=== PATIENT | female | born 1945 | race Caucasian/White ===

== ENCOUNTER 2017-02-15 10:41 | Inpatient (IN) | payer MEDICARE, BC ==
--- NOTE | 2017-02-15 11:02 | EDM.PDOC ---
ED HISTORY OF PRESENT ILLNESS - General Chief Complaint: Respiratory Problem Stated Complaint: SENT BY Time Seen by Provider: 02/15/17 10:48 Source of Information: Reports: Patient, Provider History Limitations: Reports: No limitations - History of Present Illness INITIAL COMMENTS - FREE TEXT/NARRATIVE: 72-year-old female currently side and at [facility] in [place] presents to the hospital the request of her provider Dr. Lozano. patient has underlying mental illness primarily that of schizophrenia. She presents with cough and fever and chest x-ray identified a right lower lobar pneumonia. Lab work has been done. Blood cultures have not been carried out. She is hypoxic on room air.arrives on 2 L of oxygen per minute. O2 sats are 94% on 2 L.patient reports her appetite is poor. She denies any fever or chills. Symptom Onset Date: 02/12/17 Timing/Duration: Reports: Day(s):, Gradual onset Severity: moderate Location, General: Reports: chest Quality: Reports: Ache, Sharp (mild pleuritic pain on deep inspiration right side.), Other Improves with: Reports: Rest Worsens with: Reports: Other, Movement Context, General: Denies: Activity (D. proximal and coughing.), Exercise, Lifting, Sick contact, Trauma, Other Associated Symptoms (General): Reports: chest pain, cough, cough w sputum, fever /chills, loss of appetite, malaise, shortness of breath, weakness, other ( anorexia). Denies: no other symptoms, diaphoresis, nausea/vomiting, rash, seizure, syncope Treatments FRONT DESK REPRESENTATIVE: Reports: Acetaminophen - Related Data Allergies/ADRs: Allergies Allergy/AdvReac Type Severity Reaction Status Date / Time prochlorperazine Allergy Cannot Verified 02/15/17 11:02 Remember Home Meds: Home Meds Omeprazole 20 mg PO DAILY 01/28/16 [History] Propranolol [Inderal] 40 mg PO BID 01/28/16 [History] buPROPion [buPROPion XL] 150 mg PO DAILY 01/28/16 [History] Benztropine Mesylate 1 mg PO DAILY 10/14/16 [History] Haloperidol Decanoate [Haloperidol Decanoate 100] 150 mg IM ASDIRECTED 10/14/16 [History] Aspirin 81 mg PO DAILY #30 tab.chew 11/30/16 [Rx] Pravastatin Sodium [Pravastatin (Pravachol)] 40 mg PO DAILY #30 tablet 10/18/16 [Rx] Past Medical History HEENT History: Reports: Impaired vision, Other (see below) Other HEENT History: glasses, missing teeth Gastrointestinal History: Reports: GERD Psychiatric History: Reports: Depression - Past Surgical History HEENT Surgical History: Reports: Cataract surgery GI Surgical History: Reports: Cholecystectomy, EGD Female Surgical History: Reports: Hysterectomy Social & Family History - Family History Family Medical History: Noncontributory - Tobacco Use Smoking Status *Q: Never Smoker - Caffeine Use Caffeine Use: Reports: None - Recreational Drug Use Recreational Drug Use: No - Living Situation & Occupation Living situation: Reports: extended care facility (currently residing at [facility]) Occupation: retired ED ROS GENERAL - Review of Systems Review Of Systems: See Below Constitutional: Reports: fever, chills, malaise, weakness, fatigue, decreased appetite, weight loss HEENT: Reports: No symptoms Respiratory: Reports: Shortness of Breath, Cough Cardiovascular: Reports: Chest pain (pleuritic chest pain mild when she deep please or coughs the right lower lobe.), Blood pressure problem, Dyspnea on exertion (runs a bit lower lately.) Endocrine: Reports: fatigue GI/Abdominal: Reports: Decreased appetite. Denies: Abdominal pain, Diarrhea, Nausea, Vomiting : Reports: frequency, incontinence Musculoskeletal: Reports: shoulder pain (and urge component.), back pain. Denies: neck pain Skin: Reports: no symptoms Neurological: Reports: Confusion Psychiatric: Reports: Confusion (mild problems with short-term memory), Other ( history of schizophrenia.). Denies: Homicidal ideation, Mood lability, Suicidal ideation Hematologic/Lymphatic: Reports: no symptoms Immunologic: Reports: no symptoms ED EXAM, GENERAL - Physical Exam Exam: See Below Exam Limited By: No limitations General Appearance: alert, WD/WN, no apparent distress, other (cool to touch.) Eye Exam: bilateral eye: normal inspection Ears: normal TMs Throat/Mouth: Normal inspection, Normal lips, Normal teeth, Normal oropharynx Head: atraumatic, normocephalic Neck: normal inspection, limited range of motion, tender lateral (bilaterally.) Respiratory/Chest: no respiratory distress, no accessory muscle use, decreased breath sounds (to the lower 20% of lung wyman.), rhonchi (right base of lung.) . No: respiratory distress Cardiovascular: normal peripheral pulses, regular rate, rhythm, no edema, no murmur Peripheral Pulses: 1+: posterior tibial (L), posterior tibial (R), dorsalis pedis (L), dorsalis pedis (R) GI/Abdominal: normal bowel sounds, soft, non tender, no organomegaly, no distention Back Exam: normal inspection, full range of motion. No: CVA tenderness (L), CVA tenderness (R) Extremities: normal inspection, normal range of motion, non-tender, no pedal edema, normal capillary refill Neurological: alert, oriented, CN II-XII intact, normal cognition Psychiatric: normal affect, normal mood Skin Exam: Warm, Dry, Intact, No rash, Pallor (slightly pallid.) EKG INTERPRETATION EKG Date: 02/15/17 Time: 11:20 Rhythm: NSR Rate (beats/min): 75 Mouthcard: normal P-wave: present QRS: other (mildly decreased volume in the precordial leads.) ST-T: normal QT: prolonged (mildly prolonged) Comparison: no change Course - Vital Signs Last Recorded V/S: Last Vital Signs Temp 36.7 C 02/15/17 22:40 Pulse 75 02/16/17 06:38 Resp 18 02/16/17 06:38 BP 122/93 H 02/16/17 06:38 Pulse Ox 93 L 02/16/17 06:38 - Orders/Labs/Meds Orders: Active Orders 24 hr Category Date Time Status Oxygen Therapy [RC] .PRN Care 02/15/17 11:12 Active CULTURE BLOOD [BC] Stat Lab 02/15/17 11:25 Results CULTURE BLOOD [BC] Stat Lab 02/15/17 11:35 Results Blood Culture x2 Reflex Set [OM.PC] Stat Oth 02/15/17 11:04 Ordered Medication Orders Aspirin (Aspirin) 81 mg PO DAILY [facility] Benztropine Mesylate (Cogentin) 1 mg PO DAILY [facility] Bupropion HCl (Wellbutrin Xl) 150 mg PO DAILY [facility] Enoxaparin Sodium (Lovenox) 40 mg SUBCUT DAILY [facility] Potassium Chloride/Sodium Chloride (1/2 Ns With 20 Meq Kcl) 1,000 mls @ 125 mls /hr IV ASDIRECTED [facility] Last Admin: 02/16/17 01:30 Dose: 125 mls/hr Infusion: 02/16/17 01:09 Dose: 125 mls/hr Admin: 02/15/17 17:09 Dose: 125 mls/hr Pantoprazole Sodium (Protonix) 40 mg PO DAILY [facility] Propranolol HCl (Inderal) 40 mg PO BID [facility] Last Admin: 02/15/17 22:37 Dose: 40 mg Simvastatin (Zocor) 20 mg PO DAILY [facility] Labs: Laboratory Tests 02/15/17 02/15/17 02/15/17 Range/Units 11:10 11:10 11:10 WBC 17.31 H (3.98-10.04) K/mm3 RBC 4.21 (3.98-5.22) M/mm3 Hgb 9.7 L (11.2-15.7) gm/L Hct 32.3 L (34.1-44.9) % MCV 76.7 L (79.4-94.8) fl MCH 23.0 L (25.6-32.2) pg MCHC 30.0 L (32.2-35.5) g/dl RDW Std Deviation 56.1 H (36.4-46.3) fL Plt Count 458 H (182-369) K/mm3 MPV 10.2 (9.4-12.3) fl Neutrophils % (Manual) 72 H (40-60) % Band Neutrophils % 11 H (0-10) % Lymphocytes % (Manual) 14 L (20-40) % Atypical Lymphs % 0 % Monocytes % (Manual) 3 (2-10) % Eosinophils % (Manual) 0 L (0.7-5.8) % Basophils % (Manual) 0 L (0.1-1.2) Platelet Estimate See note Polychromasia 1+ slight Hypochromasia 1+ slight Poikilocytosis 1+ slight Anisocytosis 1+ slight Ovalocytes Few RBC Morph Comment Not Reportable Sodium 140 (136-145) mEq/L Potassium 3.6 (3.5-5.1) mEq/L Chloride 106 (98-107) mEq/L Carbon Dioxide 19 L (21-32) mEq/L Anion Gap 18.6 H (5-15) BUN 22 H (7-18) mg/dL Creatinine 1.1 H (0.55-1.02) mg/dL Est Cr Clr Drug Dosing 48.01 mL/min Estimated GFR (MDRD) 49 (>60) mL/min BUN/Creatinine Ratio 20.0 H (14-18) Glucose 107 (80-115) mg/dL Lactic Acid (0.4-2.0) mmol/L Calcium 8.8 (8.5-10.1) mg/dL Magnesium (1.8-2.4) mg/dl Total Bilirubin 0.8 (0.2-1.0) mg/dL AST 20 (15-37) U/L ALT 19 (14-59) U/L Alkaline Phosphatase 127 H (46-116) U/L Troponin I < 0.017 (0.00-0.056) ng/mL C-Reactive Protein 13.1 H* (<1.0) mg/dL B-Natriuretic Peptide 70 (0-100) pg/mL Total Protein 7.6 (6.4-8.2) g/dl Albumin 2.9 L (3.4-5.0) g/dl Globulin 4.7 gm/dL Albumin/Globulin Ratio 0.6 L (1-2) 02/15/17 02/15/17 Range/Units 11:10 11:35 WBC (3.98-10.04) K/mm3 RBC (3.98-5.22) M/mm3 Hgb (11.2-15.7) gm/L Hct (34.1-44.9) % MCV (79.4-94.8) fl MCH (25.6-32.2) pg MCHC (32.2-35.5) g/dl RDW Std Deviation (36.4-46.3) fL Plt Count (182-369) K/mm3 MPV (9.4-12.3) fl Neutrophils % (Manual) (40-60) % Band Neutrophils % (0-10) % Lymphocytes % (Manual) (20-40) % Atypical Lymphs % % Monocytes % (Manual) (2-10) % Eosinophils % (Manual) (0.7-5.8) % Basophils % (Manual) (0.1-1.2) Platelet Estimate Polychromasia Hypochromasia Poikilocytosis Anisocytosis Ovalocytes RBC Morph Comment Sodium (136-145) mEq/L Potassium (3.5-5.1) mEq/L Chloride (98-107) mEq/L Carbon Dioxide (21-32) mEq/L Anion Gap (5-15) BUN (7-18) mg/dL Creatinine (0.55-1.02) mg/dL Est Cr Clr Drug Dosing mL/min Estimated GFR (MDRD) (>60) mL/min BUN/Creatinine Ratio (14-18) Glucose (80-115) mg/dL Lactic Acid 1.3 (0.4-2.0) mmol/L Calcium (8.5-10.1) mg/dL Magnesium 2.2 (1.8-2.4) mg/dl Total Bilirubin (0.2-1.0) mg/dL AST (15-37) U/L ALT (14-59) U/L Alkaline Phosphatase (46-116) U/L Troponin I (0.00-0.056) ng/mL C-Reactive Protein (<1.0) mg/dL B-Natriuretic Peptide (0-100) pg/mL Total Protein (6.4-8.2) g/dl Albumin (3.4-5.0) g/dl Globulin gm/dL Albumin/Globulin Ratio (1-2) Meds: Medications Generic Name Dose Route Start Last Admin Trade Name Freq PRN Reason Stop Dose Admin Aspirin 81 mg 02/16/17 09:00 Aspirin PO DAILY [facility] Benztropine Mesylate 1 mg 02/16/17 09:00 Cogentin PO DAILY [facility] Bupropion HCl 150 mg 02/16/17 09:00 Wellbutrin Xl PO DAILY [facility] Enoxaparin Sodium 40 mg 02/16/17 09:00 Lovenox SUBCUT DAILY [facility] Potassium Chloride/Sodium Chloride 1,000 mls @ 125 mls/hr 02/15/17 16:00 01:30 1/2 Ns With 20 Meq Kcl IV 125 mls/hr ASDIRECTED [facility] Administration Pantoprazole Sodium 40 mg 02/16/17 09:00 Protonix PO DAILY [facility] Propranolol HCl 40 mg 02/15/17 21:00 02/15/17 22:37 Inderal PO 40 mg BID [facility] Administration Simvastatin 20 mg 02/16/17 09:00 Zocor PO DAILY [facility] Discontinued Medications Generic Name Dose Route Start Last Admin Trade Name Freq PRN Reason Stop Dose Admin Levofloxacin/Dextrose 750 mg/ 150 mls @ 100 mls/hr 02/15/17 11:13 02/15/17 14 :00 Premix IV 02/15/17 12:42 100 mls/hr ONETIME ONE Administration Sodium Chloride 1,000 mls @ 250 mls/hr 02/15/17 11:15 Normal Saline IV ASDIRECTED [facility] Dextrose/Sodium Chloride 1,000 mls @ 250 mls/hr 02/15/17 13:00 02/15/17 14:00 Dextrose 5%-Normal Saline IV 250 mls/hr ASDIRECTED [facility] Administration Non-Formulary Medication 150 mg 02/15/17 16:00 Haloperidol Decanoate IM ASDIRECTED [facility] - Radiology Interpretation Free Text/Narrative:: 72-year-old female who has underlying mental illness and chronic schizophrenia presented to the ED at the request of her primary care practitioner Dr. Norbert pearson. Apparently she presented with fever chills and productive cough and a chest x-ray suggested a right lower lobar pneumonia. She was thus sent sent over because of hypoxia and perceived need for admission. Currently she is on 2 L of oxygen per minute and sats are only 91-92%. Will be bumped to 3 L.labs will be repeated since they were supposed to be sent over but have not arrived. Blood cultures x2 need to be done at any rate. She'll be started on IV Levaquin 750 mg IV soon as blood cultures x2 been collected. - Re-Assessments/Exams Free Text/Narrative Re-Assessment/Exam: 02/15/17 11:43x-ray department techs were able to get the x-ray films that were done at [facility] this morning sent over it does confirm an infiltrate in the right lower lobe of the lung suggestive of a pneumonia. It also could be some fluid in this area as well. blunted left costophrenic angle with small pleural effusion is evident as well.Chest x-ray that I had ordered was canceled. 02/15/17 12:41labs are back and show an elevated white count at 17.31 with a left shift of 72% neutrophils and 11% band cells. Hemoglobin is low at 9.7 with a hematocrit of 32.3.platelet count is elevated at 458,000. IE mild essential thrombocytosis. The MCV is low at 76.7 suggesting iron deficiency anemia.chemistry shows a sodium of 140 potassium 3.6 bicarbonate is 19 and she is not a CO2 retainer. Anion gap is elevated 18.6 CRP is elevated at 13.1. Creatinine is 1.1 EGFR is 49 albumin fraction slightly low at 2.1. Lactic acid was normal.the BMP is not yet back. The chest x-ray suggested there is extra fluid within the lungs. Will change IV to D5 normal saline at 250 mils per hour until the BMP returns. This is because her anion gap is elevated at 18.6. 02/15/17 13:[address] Mayo bathroom tiling professional hospitalist and she is accepted care of betty in regards to her pneumonia. She'll be admitted to the [facility] surgery floor on telemetry. Departure - Departure Time of Disposition: 13:23 Disposition: Admitted As Inpatient 68 Condition: fair, serious Clinical Impression: Hypoxia Pneumonia Qualifiers: Pneumonia type: due to unspecified organism Laterality: right Lung location: lower lobe of lung Qualified Code(s): J18.1 - Lobar pneumonia, unspecified organism Anemia Qualifiers: Anemia type: iron deficiency - My Orders Last 24 Hours: My Active Orders 02/15/17 11:04 Blood Culture x2 Reflex Set [OM.PC] Stat 02/15/17 11:12 Oxygen Therapy [RC] .PRN 02/15/17 11:25 CULTURE BLOOD [BC] Stat 02/15/17 11:35 CULTURE BLOOD [BC] Stat - Assessment/Plan Last 24 Hours: My Active Orders 02/15/17 11:04 Blood Culture x2 Reflex Set [OM.PC] Stat 02/15/17 11:12 Oxygen Therapy [RC] .PRN 02/15/17 11:25 CULTURE BLOOD [BC] Stat 02/15/17 11:35 CULTURE BLOOD [BC] Stat
[2017-02-15] MEDS ORDERED: Levofloxacin/Dextrose 5%-Water 750 MG in Premix Bag 1 BAG IV ONE (11:13)
[2017-02-15] MEDS ORDERED: Sodium Chloride 0.9% 1,000 ML IV SCH (11:15)
[2017-02-15] MEDS ORDERED: Dextrose 5%-0.9% NaCl 1,000 ML IV SCH (13:00)
--- NOTE | 2017-02-15 14:10 | PCM.SN ---
- Free Text/Narrative Note: in room at 1339 for IV start x3 attempts #[id number]. right thumb good flush out room at 1401
--- NOTE | 2017-02-15 15:36 | PCM.HP ---
H&P History of Present Illness - General Date of Service: 02/15/17 Admit Problem/Dx: Admission Diagnosis/Problem Admission Diagnosis/Problem Pneumonia Source of Information: Provider History Limitations: Reports: No limitations - History of Present Illness Initial Comments - Free Text/Narative: 72 year old female with SOB, pleuritic chest pain who on CXR has RLL infiltrate , was seen and evaluated by her PCP and sent to the ED where she received IV Levoquin. Oxygen was also provide, O2 saturation improved to 94% on 2 l/m via NC. WBC 17.3/Bands 11/CRP 13.1; Bun 22/Cr 1.1/GFR 49, CKD III. The patient will be admitted to [facility]. Onset of Symptoms: Reports: unknown/unsure Duration of Symptoms: Reports: Day(s):, Getting worse Location: Reports: chest Severity: moderate Improves with: Reports: Medication Worsens with: Reports: None Context: Reports: sick contact (unknown) Associated Symptoms: Reports: chest pain, fever/chills, malaise, shortness of breath - Related Data Allergies/Adverse Reactions: Allergies Allergy/AdvReac Type Severity Reaction Status Date / Time prochlorperazine Allergy Cannot Verified 02/15/17 11:02 Remember Home Medications: Home Meds Omeprazole 20 mg PO DAILY 01/28/16 [History] Propranolol [Inderal] 40 mg PO BID 01/28/16 [History] buPROPion [buPROPion XL] 150 mg PO DAILY 01/28/16 [History] Benztropine Mesylate 1 mg PO DAILY 10/14/16 [History] Haloperidol Decanoate [Haloperidol Decanoate 100] 150 mg IM ASDIRECTED 10/14/16 [History] Aspirin 81 mg PO DAILY #30 tab.chew 10/18/16 [Rx] Pravastatin Sodium [Pravastatin (Pravachol)] 40 mg PO DAILY #30 tablet 10/18/16 [Rx] Past Medical History HEENT History: Reports: Impaired vision, Other (see below) Other HEENT History: glasses, missing teeth Gastrointestinal History: Reports: GERD Psychiatric History: Reports: Depression - Past Surgical History HEENT Surgical History: Reports: Cataract surgery GI Surgical History: Reports: Cholecystectomy, EGD Female Surgical History: Reports: Hysterectomy Social & Family History - Family History Family Medical History: Noncontributory - Tobacco Use Smoking Status *Q: Never Smoker Second Hand Smoke Exposure: No - Caffeine Use Caffeine Use: Reports: None - Recreational Drug Use Recreational Drug Use: No - Living Situation & Occupation Living situation: Reports: extended care facility (currently residing at [facility]) Occupation: retired H&P Review of Systems - Review of Systems: Review Of Systems: See Below General: Reports: fever, chills, malaise, weakness, decreased appetite HEENT: Reports: sore throat Pulmonary: Reports: Shortness of Breath, Pleuritic Chest Pain, Cough, Sputum Cardiovascular: Reports: dyspnea on exertion, lightheadedness Gastrointestinal: Reports: Anorexia, Decreased appetite. Denies: Mucous in stool Genitourinary: Reports: no symptoms Musculoskeletal: Reports: shoulder pain, back pain Skin: Reports: no symptoms Psychiatric: Reports: confusion Neurological: Reports: Confusion Hematologic/Lymphatic: Reports: no symptoms Immunologic: Reports: no symptoms Exam - Exam Exam: See Below - Vital Signs Vital Signs: Last Vital Signs Temp 36.3 C 02/15/17 11:00 Pulse 77 02/15/17 11:00 Resp 14 02/15/17 11:00 BP 108/64 02/15/17 11:00 Pulse Ox 88 L 02/15/17 14:50 Weight: 81.647 kg - Exam Quality Assessment: supplemental oxygen, DVT prophylaxis General: alert, oriented, cooperative HEENT: EACs clear, EOMI, Nares patent, Normal nasal septum, Pupils equal, Pupils reactive Neck: trachea midline Lungs: Normal respiratory effort, Decreased breath sounds, Rhonchi Cardiovascular: regular rate, tachycardia Abdomen: normal bowel sounds, soft (Female) Exam: Deferred Rectal (Female) Exam: Deferred Back Exam: normal inspection Extremities: normal pulses Skin: warm Neurological: cranial nerves intact Neuro Extensive - Mental Status: alert, other (oriented to self) Neuro Extensive - Motor, Sensory, Reflexes: CN II-XII intact Psychiatric: alert - Patient Data Result Diagrams: 02/15/17 11:10 02/16/17 06:34 *Q Meaningful Use (ADM) - VTE *Q VTE Criteria *Q: - Stroke *Q Stroke Criteria *Q: - AMI *Q AMI Criteria *Q: - Problem List (1) Anemia SNOMED Code(s): 832498595 ICD Code: D64.9 - ANEMIA, UNSPECIFIED Status: Acute Current Visit: Yes Qualifiers: Anemia type: iron deficiency (2) Hypoxia SNOMED Code(s): 875694682, 469448719 ICD Code: R09.02 - HYPOXEMIA Status: Acute Current Visit: Yes (3) Pneumonia SNOMED Code(s): 430453895 ICD Code: J18.9 - PNEUMONIA, UNSPECIFIED ORGANISM Status: Acute Current Visit: Yes Qualifiers: Pneumonia type: due to unspecified organism Laterality: right Lung location: lower lobe of lung Qualified Code(s): J18.1 - Lobar pneumonia, unspecified organism (4) Dyslipidemia (high LDL; low HDL) SNOMED Code(s): 591923930 ICD Code: E78.4 - OTHER HYPERLIPIDEMIA Status: Acute Current Visit: No (5) Mild atherosclerosis of carotid artery SNOMED Code(s): 385569496 ICD Code: I65.29 - OCCLUSION AND STENOSIS OF UNSPECIFIED CAROTID ARTERY Status: Acute Current Visit: No Qualifiers: Laterality: bilateral Qualified Code(s): I65.23 - Occlusion and stenosis of bilateral carotid arteries Problem List Initiated/Reviewed/Updated: Yes Orders Last 24hrs: Active Orders 24 hr Category Date Time Status Dextrose 5%-0.9% NaCl [Dextrose 5%-Normal Saline] 1,000 Med 02/15/17 13:00 Active ml IV ASDIRECTED Medication Orders Dextrose/Sodium Chloride (Dextrose 5%-Normal Saline) 1,000 mls @ 250 mls/hr IV ASDIRECTED [facility] Last Admin: 02/15/17 14:00 Dose: 250 mls/hr Assessment/Plan Comment:: Impression: [place] resident with pleuritic chest pain, CXR right lower lobe infiltrate associated with hypoxia was seen by PCP. Nonsmoker Dehydration Psychiatric history, schizophrenia Chronic Schizophrenia GERD Hyperlipdemia Plan: Levoquin Zosyn Nebs O2, keep sat>92% IV hydration Home meds DVT/GI prophylaxis LOS<96 hours expected
[2017-02-15] MEDS ORDERED: HALOPERIDOL DECANOATE 150 MG IM SCH (16:00)
[2017-02-15] MEDS: Sodium Chloride 0.45% with KCl 1,000 ML IV SCH (17:09)
[2017-02-15] MEDS: Propranolol 40 MG Tab PO SCH (22:37)
[2017-02-16] MEDS: Sodium Chloride 0.45% with KCl 1,000 ML IV SCH ×3 (01:30→18:28)
[2017-02-16] MEDS: Enoxaparin 40 MG/0.4 ML Syringe SUBCUT SCH (09:52)
[2017-02-16] MEDS: Simvastatin 20 MG Tab PO SCH (09:53)
[2017-02-16] MEDS: buPROPion 150 MG Tab.ER PO SCH (09:53)
[2017-02-16] MEDS: Propranolol 40 MG Tab PO SCH ×2 (09:53→21:57)
[2017-02-16] MEDS: Pantoprazole 40 MG Tab.CR PO SCH (09:53)
[2017-02-16] MEDS: Benztropine 1 MG Tab PO SCH (09:53)
[2017-02-16] MEDS: Aspirin 81 MG Tab.Chew PO SCH (09:53)
[2017-02-16] MEDS ORDERED: Piperacillin/Tazobactam 4.5 GM in Sodium Chloride 0.9% 100 ML IV ONE (10:00)
[2017-02-16] MEDS: Levofloxacin/Dextrose 5%-Water 750 MG in Premix Bag 1 BAG IV SCH (11:34)
[2017-02-16] MEDS: Albuterol/Ipratropium 3.0-0.5 MG/3 ML Neb Soln NEB SCH ×3 (11:53→22:15)
--- NOTE | 2017-02-16 11:57 | PCM.PN ---
- General Info Date of Service: 02/16/17 Functional Status: Reports: tolerating diet, urinating - Review of Systems General: Reports: Weakness, Fatigue HEENT: Reports: no symptoms Pulmonary: Reports: shortness of breath Cardiovascular: Reports: No Symptoms Gastrointestinal: Reports: No symptoms Genitourinary: Reports: no symptoms Musculoskeletal: Reports: no symptoms Neurological: Reports: Confusion Psychiatric: Reports: other (restless) - Patient Data Vitals - most recent: Last Vital Signs Temp 36.7 C 02/15/17 22:40 Pulse 75 02/16/17 06:38 Resp 18 02/16/17 06:38 BP 122/93 H 02/16/17 06:38 Pulse Ox 91 L 02/16/17 11:53 Weight - most recent: 77.836 kg I&O - last 24 hours: Intake & Output 02/15/17 02/16/17 02/16/17 22:59 06:59 14:59 Intake Total 120 1880 120 Balance 120 1880 120 Lab Results last 24 hrs: Laboratory Results - last 24 hr 02/15/17 02/16/17 Range/Units 19:50 06:34 Sodium 137 (136-145) mEq/L Potassium 3.5 (3.5-5.1) mEq/L Chloride 106 (98-107) mEq/L Carbon Dioxide 19 L (21-32) mEq/L Anion Gap 15.5 H (5-15) BUN 12 (7-18) mg/dL Creatinine 0.9 (0.55-1.02) mg/dL Est Cr Clr Drug Dosing 58.67 mL/min Estimated GFR (MDRD) > 60 (>60) mL/min BUN/Creatinine Ratio 13.3 L (14-18) Glucose 105 (80-115) mg/dL Calcium 8.0 L (8.5-10.1) mg/dL Urine Color Yellow (Yellow) Urine Appearance Cloudy H (Clear) Urine pH 6.0 (5.0-8.0) Ur Specific [place] > or = 1.030 (1.005-1.030) Urine Protein 2+ H (Negative) Urine Glucose (UA) Negative (Negative) Urine Ketones Trace H (Negative) Urine Occult Blood 1+ H (Negative) Urine Nitrite Positive H (Negative) Urine Bilirubin 1+ H (Negative) Urine Urobilinogen 2.0 H (0.2-1.0) Ur Leukocyte Esterase Negative (Negative) Urine RBC 0-5 (0-5) /hpf Urine WBC 20-30 H (0-5) /hpf Ur Squamous Epith Cells 5-10 H (0-5) /hpf Urine Bacteria Many H (FEW) /hpf Urine Mucus Not seen (FEW) /hpf Mycoplasma pneumon IgM Negative (NEGATIVE) [facility]rick Results last 24 hrs: Microbiology 02/15/17 17:00 Influenza Type A Antigen Screen - Final Nasal, Unspecified NEGATIVE INFLUENZA A VIRUS AG Influenza Type B Antigen Screen - Final NEGATIVE INFLUENZA B VIRUS AG Med Orders - Current: Current Medications Albuterol/Ipratropium (Duoneb 3.0-0.5 Mg/3 Ml) 3 ml NEB Q6HRRT [facility] Last Admin: 02/16/17 11:53 Dose: 3 ml Aspirin (Aspirin) 81 mg PO DAILY [facility] Last Admin: 02/16/17 09:53 Dose: 81 mg Benztropine Mesylate (Cogentin) 1 mg PO DAILY [facility] Last Admin: 02/16/17 09:53 Dose: 1 mg Bupropion HCl (Wellbutrin Xl) 150 mg PO DAILY [facility] Last Admin: 02/16/17 09:53 Dose: 150 mg Enoxaparin Sodium (Lovenox) 40 mg SUBCUT DAILY [facility] Last Admin: 02/16/17 09:52 Dose: 40 mg Potassium Chloride/Sodium Chloride (1/2 Ns With 20 Meq Kcl) 1,000 mls @ 125 mls /hr IV ASDIRECTED [facility] Last Admin: 02/16/17 09:53 Dose: 125 mls/hr Levofloxacin/Dextrose 750 mg/ (Premix) 150 mls @ 100 mls/hr IV Q24H [facility] Last Admin: 02/16/17 11:34 Dose: 100 mls/hr Piperacillin Sod/Tazobactam (Sod 4.5 gm/ Sodium Chloride) 100 mls @ 25 mls/hr IV Q8H [facility] Pantoprazole Sodium (Protonix) 40 mg PO DAILY [facility] Last Admin: 02/16/17 09:53 Dose: 40 mg Propranolol HCl (Inderal) 40 mg PO BID [facility] Last Admin: 02/16/17 09:53 Dose: 40 mg Simvastatin (Zocor) 20 mg PO DAILY [facility] Last Admin: 02/16/17 09:53 Dose: 20 mg Discontinued Medications Levofloxacin/Dextrose 750 mg/ (Premix) 150 mls @ 100 mls/hr IV ONETIME ONE Stop: 02/15/17 12:42 Last Admin: 02/15/17 14:00 Dose: 100 mls/hr Sodium Chloride (Normal Saline) 1,000 mls @ 250 mls/hr IV ASDIRECTED [facility] Dextrose/Sodium Chloride (Dextrose 5%-Normal Saline) 1,000 mls @ 250 mls/hr IV ASDIRECTED [facility] Last Admin: 02/15/17 14:00 Dose: 250 mls/hr Piperacillin Sod/Tazobactam (Sod 4.5 gm/ Sodium Chloride) 100 mls @ 200 mls/hr IV ONETIME ONE Stop: 02/16/17 10:29 Last Admin: 02/16/17 10:23 Dose: 200 mls/hr Non-Formulary Medication (Haloperidol Decanoate) 150 mg IM ASDIRECTED [facility] - Exam Quality Assessment: supplemental oxygen, DVT prophylaxis General: alert, oriented, cooperative, no acute distress HEENT: Pupils equal, Pupils reactive, EOMI Neck: supple, trachea midline, no JVD Lungs: Normal respiratory effort, Decreased breath sounds Cardiovascular: Regular Rate, Regular Rhythm Abdomen: bowel sounds present, soft, no tenderness, no distension (Female) Exam: Deferred Back Exam: normal inspection Extremities: normal pulses Skin: warm Neurological: no new focal deficit, normal speech Psy/Mental Status: alert - Problem List & Annotations (1) Anemia SNOMED Code(s): 168473813 Code(s): D64.9 - ANEMIA, UNSPECIFIED Status: Acute Current Visit: Yes Qualifiers: Anemia type: iron deficiency (2) Hypoxia SNOMED Code(s): 493244845, 714228388 Code(s): R09.02 - HYPOXEMIA Status: Acute Current Visit: Yes (3) Pneumonia SNOMED Code(s): 305208105 Code(s): J18.9 - PNEUMONIA, UNSPECIFIED ORGANISM Status: Acute Current Visit: Yes Qualifiers: Pneumonia type: due to unspecified organism Laterality: right Lung location: lower lobe of lung Qualified Code(s): J18.1 - Lobar pneumonia, unspecified organism (4) Dyslipidemia (high LDL; low HDL) SNOMED Code(s): 789039827 Code(s): E78.4 - OTHER HYPERLIPIDEMIA Status: Acute Current Visit: No (5) Mild atherosclerosis of carotid artery SNOMED Code(s): 675199476 Code(s): I65.29 - OCCLUSION AND STENOSIS OF UNSPECIFIED CAROTID ARTERY Status: Acute Current Visit: No Qualifiers: Laterality: bilateral Qualified Code(s): I65.23 - Occlusion and stenosis of bilateral carotid arteries - Problem List Review Problem List Initiated/Reviewed/Updated: Yes - My Orders Last 24 Hours: My Active Orders 02/15/17 15:43 Activity as Tolerated [RC] DAILY Vital Signs [RC] 03,09,15,21 02/15/17 15:45 Isolation [COMM] Routine 02/15/17 15:55 Antiembolic Devices [RC] DAILY ANNIA Hose [Antiembolic Hose] [OM.PC] Routine 02/15/17 16:00 Sodium Chloride 0.45% with KCl [1/2 NS with 20 mEq KCl] 1,000 ml IV ASDIRECTED 02/15/17 17:34 Code Status [Resuscitation Status] Routine 02/15/17 19:50 CULTURE URINE [RM] Routine STREP PNEUMONIAE ANTIGEN [MREF] Routine 02/15/17 21:00 Propranolol [Inderal] 40 mg PO BID 02/15/17 Dinner Clear Liquid Diet [DIET] 02/16/17 06:34 MAGNESIUM [CHEM] DAILY 02/16/17 09:00 Aspirin 81 mg PO DAILY Benztropine [Cogentin] 1 mg PO DAILY Enoxaparin [Lovenox] 40 mg SUBCUT DAILY Pantoprazole [ProTONIX] 40 mg PO DAILY Simvastatin [Zocor] 20 mg PO DAILY buPROPion [Wellbutrin XL] 150 mg PO DAILY 02/16/17 10:01 RT Aerosol Therapy [RC] ASDIRECTED 02/16/17 10:30 Levofloxacin/Dextrose 5%-Water [Levaquin in D5W 750 MG/150 ML] 750 mg Premix Bag 1 bag IV Q24H 02/16/17 11:50 OT Evaluation and Treatment [CONS] Routine PT Evaluation and Treatment [CONS] Routine 02/16/17 12:00 Albuterol/Ipratropium [DuoNeb 3.0-0.5 MG/3 ML] 3 ml NEB Q6HRRT 02/16/17 18:00 Piperacillin/Tazobactam [Zosyn] 4.5 gm Sodium Chloride 0.9% [Normal Saline] 100 ml IV Q8H 02/17/17 05:00 BMP [BASIC METABOLIC PANEL,BMP] [CHEM] DAILY CBC WITH AUTO DIFF [HEME] DAILY CRP [C-REACTIVE PROTEIN] [CHEM] DAILY MAGNESIUM [CHEM] Routine 02/18/17 05:00 BMP [BASIC METABOLIC PANEL,BMP] [CHEM] DAILY CBC WITH AUTO DIFF [HEME] DAILY CRP [C-REACTIVE PROTEIN] [CHEM] DAILY 02/19/17 05:00 CBC WITH AUTO DIFF [HEME] DAILY CRP [C-REACTIVE PROTEIN] [CHEM] DAILY 02/19/17 07:00 CBC W/O DIFF,HEMOGRAM [HEME] MOTH@0700 02/22/17 07:00 CBC W/O DIFF,HEMOGRAM [HEME] MOTH@0700 02/26/17 07:00 CBC W/O DIFF,HEMOGRAM [HEME] MOTH@0700 03/01/17 07:00 CBC W/O DIFF,HEMOGRAM [HEME] MOTH@0700 03/05/17 07:00 CBC W/O DIFF,HEMOGRAM [HEME] MOTH@0700 03/08/17 07:00 CBC W/O DIFF,HEMOGRAM [HEME] MOTH@0700 - Plan Plan:: Impression: [place] resident with pleuritic chest pain, CXR right lower lobe infiltrate associated with hypoxia was seen by PCP. Nonsmoker Dehydration Psychiatric history, schizophrenia Chronic GERD Hyperlipdemia Plan: Levoquin Zosyn Nebs O2, keep sat>92% IV hydration Home meds DVT/GI prophylaxis
[2017-02-16] MEDS ORDERED: Haloperidol Lactate 5 MG/ML SDV IVPUSH ONE (13:03)
[2017-02-16] MEDS: Piperacillin/Tazobactam 4.5 GM in Sodium Chloride 0.9% 100 ML IV SCH (17:38)
[2017-02-16] MEDS ORDERED: Magnesium Sulfate/Water 2 GM in Premix Bag 1 BAG IV ONE (20:00)
[2017-02-17] MEDS: Piperacillin/Tazobactam 4.5 GM in Sodium Chloride 0.9% 100 ML IV SCH ×3 (02:29→17:02)
[2017-02-17] MEDS: Sodium Chloride 0.45% with KCl 1,000 ML IV SCH (02:29)
[2017-02-17] MEDS: Albuterol/Ipratropium 3.0-0.5 MG/3 ML Neb Soln NEB SCH ×4 (06:00→21:55)
[2017-02-17] MEDS: Pantoprazole 40 MG Tab.CR PO SCH (09:03)
[2017-02-17] MEDS: Aspirin 81 MG Tab.Chew PO SCH (09:04)
[2017-02-17] MEDS: Propranolol 40 MG Tab PO SCH ×2 (09:04→22:08)
[2017-02-17] MEDS: buPROPion 150 MG Tab.ER PO SCH (09:04)
[2017-02-17] MEDS: Simvastatin 20 MG Tab PO SCH (09:05)
[2017-02-17] MEDS: Benztropine 1 MG Tab PO SCH (09:05)
[2017-02-17] MEDS: Enoxaparin 40 MG/0.4 ML Syringe SUBCUT SCH (09:09)
[2017-02-17] MEDS: Levofloxacin/Dextrose 5%-Water 750 MG in Premix Bag 1 BAG IV SCH (09:30)
--- NOTE | 2017-02-17 11:17 | PCM.PN ---
- General Info Date of Service: 02/17/17 Functional Status: Reports: tolerating diet, urinating - Review of Systems General: Reports: Weakness HEENT: Reports: no symptoms Pulmonary: Reports: shortness of breath Cardiovascular: Reports: No Symptoms Gastrointestinal: Reports: No symptoms Genitourinary: Reports: no symptoms Musculoskeletal: Reports: no symptoms Skin: Reports: no symptoms Neurological: Reports: No Symptoms Psychiatric: Reports: no symptoms - Patient Data Vitals - most recent: Last Vital Signs Temp 37.2 C 02/17/17 02:36 Pulse 85 02/17/17 02:36 Resp 16 02/17/17 02:36 BP 111/48 L 02/17/17 02:36 Pulse Ox 92 L 02/17/17 06:02 Weight - most recent: 77.927 kg I&O - last 24 hours: Intake & Output 02/16/17 02/17/17 02/17/17 22:59 06:59 14:59 Intake Total 3909 1765 120 Output Total 400 1800 Balance 3509 -35 120 Lab Results last 24 hrs: Laboratory Results - last 24 hr 02/16/17 02/17/17 02/17/17 Range/Units 06:34 07:55 07:55 WBC 12.15 H (3.98-10.04) K/mm3 RBC 3.70 L (3.98-5.22) M/mm3 Hgb 8.6 L (11.2-15.7) gm/L Hct 28.9 L (34.1-44.9) % MCV 78.1 L (79.4-94.8) fl MCH 23.2 L (25.6-32.2) pg MCHC 29.8 L (32.2-35.5) g/dl RDW Std Deviation 56.8 H (36.4-46.3) fL Plt Count 370 H (182-369) K/mm3 MPV 10.1 (9.4-12.3) fl Neut % (Auto) 76.3 H (34.0-71.1) % Lymph % (Auto) 9.5 L (19.3-51.7) % [place] % (Auto) 9.0 (4.7-12.5) % Eos % (Auto) 1.5 (0.7-5.8) Baso % (Auto) 0.2 (0.1-1.2) % Neut # (Auto) 9.29 H (1.56-6.13) K/mm3 Lymph # (Auto) 1.15 L (1.18-3.74) K/mm3 [place] # (Auto) 1.09 H (0.24-0.36) K/mm3 Eos # (Auto) 0.18 (0.04-0.36) K/mm3 Baso # (Auto) 0.02 (0.01-0.08) K/mm3 Manual Slide Review Abnormal smear Sodium 140 (136-145) mEq/L Potassium 3.8 (3.5-5.1) mEq/L Chloride 107 (98-107) mEq/L Carbon Dioxide 20 L (21-32) mEq/L Anion Gap 16.8 H (5-15) BUN 6 L (7-18) mg/dL Creatinine 0.9 (0.55-1.02) mg/dL Est Cr Clr Drug Dosing 58.67 mL/min Estimated GFR (MDRD) > 60 (>60) mL/min BUN/Creatinine Ratio 6.7 L (14-18) Glucose 94 (80-115) mg/dL Calcium 7.9 L (8.5-10.1) mg/dL Magnesium 1.7 L 2.4 (1.8-2.4) mg/dl C-Reactive Protein 8.9 H* (<1.0) mg/dL [facility] Results last 24 hrs: Microbiology 02/15/17 19:50 Urine Culture - Final Urine, Clean Catch Escherichia Coli 02/15/17 19:50 Streptococcus pneumoniae Antigen (M - Final Urine Med Orders - Current: Current Medications Albuterol/Ipratropium (Duoneb 3.0-0.5 Mg/3 Ml) 3 ml NEB Q6HRRT [facility] Last Admin: 02/17/17 11:14 Dose: 3 ml Aspirin (Aspirin) 81 mg PO DAILY [facility] Last Admin: 02/17/17 09:04 Dose: 81 mg Benztropine Mesylate (Cogentin) 1 mg PO DAILY [facility] Last Admin: 02/17/17 09:05 Dose: 1 mg Bupropion HCl (Wellbutrin Xl) 150 mg PO DAILY [facility] Last Admin: 02/17/17 09:04 Dose: 150 mg Enoxaparin Sodium (Lovenox) 40 mg SUBCUT DAILY [facility] Last Admin: 02/17/17 09:09 Dose: 40 mg Potassium Chloride/Sodium Chloride (1/2 Ns With 20 Meq Kcl) 1,000 mls @ 125 mls /hr IV ASDIRECTED [facility] Last Admin: 02/17/17 02:29 Dose: 125 mls/hr Levofloxacin/Dextrose 750 mg/ (Premix) 150 mls @ 100 mls/hr IV Q24H [facility] Last Admin: 02/17/17 09:30 Dose: 100 mls/hr Piperacillin Sod/Tazobactam (Sod 4.5 gm/ Sodium Chloride) 100 mls @ 25 mls/hr IV Q8H [facility] Last Admin: 02/17/17 09:30 Dose: 25 mls/hr Pantoprazole Sodium (Protonix) 40 mg PO DAILY [facility] Last Admin: 02/17/17 09:03 Dose: 40 mg Propranolol HCl (Inderal) 40 mg PO BID [facility] Last Admin: 02/17/17 09:04 Dose: 40 mg Simvastatin (Zocor) 20 mg PO DAILY [facility] Last Admin: 02/17/17 09:05 Dose: 20 mg Discontinued Medications Haloperidol Lactate (Haldol) 2 mg IVPUSH ONETIME ONE Stop: 02/16/17 13:04 Last Admin: 02/16/17 13:41 Dose: 2 mg Levofloxacin/Dextrose 750 mg/ (Premix) 150 mls @ 100 mls/hr IV ONETIME ONE Stop: 02/15/17 12:42 Last Admin: 02/15/17 14:00 Dose: 100 mls/hr Sodium Chloride (Normal Saline) 1,000 mls @ 250 mls/hr IV ASDIRECTED [facility] Dextrose/Sodium Chloride (Dextrose 5%-Normal Saline) 1,000 mls @ 250 mls/hr IV ASDIRECTED [facility] Last Admin: 02/15/17 14:00 Dose: 250 mls/hr Piperacillin Sod/Tazobactam (Sod 4.5 gm/ Sodium Chloride) 100 mls @ 200 mls/hr IV ONETIME ONE Stop: 02/16/17 10:29 Last Admin: 02/16/17 10:23 Dose: 200 mls/hr Magnesium Sulfate 2 gm/ Premix 50 mls @ 25 mls/hr IV ONETIME ONE Stop: 02/16/17 21:59 Last Admin: 02/16/17 21:57 Dose: 25 mls/hr Non-Formulary Medication (Haloperidol Decanoate) 150 mg IM ASDIRECTED [facility] - Exam Quality Assessment: DVT prophylaxis General: alert, oriented, cooperative, no acute distress HEENT: Pupils equal, Pupils reactive, EOMI Neck: supple, trachea midline, no JVD Lungs: Normal respiratory effort, Decreased breath sounds Cardiovascular: Regular Rate Abdomen: bowel sounds present, soft, no tenderness, no distension (Female) Exam: Deferred Back Exam: normal inspection Extremities: normal pulses Skin: warm Neurological: no new focal deficit, normal gait, normal speech Psy/Mental Status: alert, normal affect, normal mood - Problem List & Annotations (1) Anemia SNOMED Code(s): 686255630 Code(s): D64.9 - ANEMIA, UNSPECIFIED Status: Acute Current Visit: Yes Qualifiers: Anemia type: iron deficiency (2) Hypoxia SNOMED Code(s): 257137998, 331100796 Code(s): R09.02 - HYPOXEMIA Status: Acute Current Visit: Yes (3) Pneumonia SNOMED Code(s): 607365683 Code(s): J18.9 - PNEUMONIA, UNSPECIFIED ORGANISM Status: Acute Current Visit: Yes Qualifiers: Pneumonia type: due to unspecified organism Laterality: right Lung location: lower lobe of lung Qualified Code(s): J18.1 - Lobar pneumonia, unspecified organism (4) Dyslipidemia (high LDL; low HDL) SNOMED Code(s): 637880039 Code(s): E78.4 - OTHER HYPERLIPIDEMIA Status: Acute Current Visit: No (5) Mild atherosclerosis of carotid artery SNOMED Code(s): 775385376 Code(s): I65.29 - OCCLUSION AND STENOSIS OF UNSPECIFIED CAROTID ARTERY Status: Acute Current Visit: No Qualifiers: Laterality: bilateral Qualified Code(s): I65.23 - Occlusion and stenosis of bilateral carotid arteries - Problem List Review Problem List Initiated/Reviewed/Updated: Yes - My Orders Last 24 Hours: My Active Orders 02/16/17 10:30 Levofloxacin/Dextrose 5%-Water [Levaquin in D5W 750 MG/150 ML] 750 mg Premix Bag 1 bag IV Q24H 02/16/17 11:50 OT Evaluation and Treatment [CONS] Routine PT Evaluation and Treatment [CONS] Routine 02/16/17 12:00 Albuterol/Ipratropium [DuoNeb 3.0-0.5 MG/3 ML] 3 ml NEB Q6HRRT 02/16/17 18:00 Piperacillin/Tazobactam [Zosyn] 4.5 gm Sodium Chloride 0.9% [Normal Saline] 100 ml IV Q8H 02/17/17 11:07 RT Chest Physiotherapy [RC] ASDIRECTED 02/17/17 Dinner Regular Diet [DIET] 02/18/17 05:00 BMP [BASIC METABOLIC PANEL,BMP] [CHEM] DAILY CBC WITH AUTO DIFF [HEME] DAILY CRP [C-REACTIVE PROTEIN] [CHEM] DAILY 02/19/17 05:00 CBC WITH AUTO DIFF [HEME] DAILY CRP [C-REACTIVE PROTEIN] [CHEM] DAILY 02/19/17 07:00 CBC W/O DIFF,HEMOGRAM [HEME] MOTH@0700 02/22/17 07:00 CBC W/O DIFF,HEMOGRAM [HEME] MOTH@0700 02/26/17 07:00 CBC W/O DIFF,HEMOGRAM [HEME] MOTH@0700 03/01/17 07:00 CBC W/O DIFF,HEMOGRAM [HEME] MOTH@0700 03/05/17 07:00 CBC W/O DIFF,HEMOGRAM [HEME] MOTH@0700 03/08/17 07:00 CBC W/O DIFF,HEMOGRAM [HEME] MOTH@0700 - Plan Plan:: Impression: CXR right lower lobe infiltrate associated with hypoxia was seen by PCP. Nonsmoker Dehydration, resolved. Psychiatric history, schizophrenia on psych meds Chronic GERD Hyperlipdemia Plan: Levoquin Zosyn Nebs O2, keep sat>92% IV hydration Home meds DVT/GI prophylaxis LOS<96, DC expected on 02/19/17.
[2017-02-18] MEDS: Sodium Chloride 0.45% with KCl 1,000 ML IV SCH ×2 (00:05→08:05)
[2017-02-18] MEDS: Piperacillin/Tazobactam 4.5 GM in Sodium Chloride 0.9% 100 ML IV SCH ×2 (02:21→09:33)
[2017-02-18] MEDS: Albuterol/Ipratropium 3.0-0.5 MG/3 ML Neb Soln NEB SCH ×4 (06:03→22:20)
[2017-02-18] MEDS: Saccharomyces Boulardii (Probiotic) 250 MG Cap PO SCH (08:01)
[2017-02-18] MEDS: buPROPion 150 MG Tab.ER PO SCH (08:01)
[2017-02-18] MEDS: Propranolol 40 MG Tab PO SCH ×2 (08:01→21:36)
[2017-02-18] MEDS: Benztropine 1 MG Tab PO SCH (08:01)
[2017-02-18] MEDS: Aspirin 81 MG Tab.Chew PO SCH (08:01)
[2017-02-18] MEDS: Pantoprazole 40 MG Tab.CR PO SCH (08:02)
[2017-02-18] MEDS: Simvastatin 20 MG Tab PO SCH (08:02)
[2017-02-18] MEDS: Enoxaparin 40 MG/0.4 ML Syringe SUBCUT SCH (08:02)
[2017-02-18] MEDS ORDERED: ALPRAZolam 0.5 MG Tab PO PRN (14:08)
[2017-02-18] MEDS: Levofloxacin/Dextrose 5%-Water 750 MG in Premix Bag 1 BAG IV SCH (14:24)
--- NOTE | 2017-02-18 15:10 | PCM.PN ---
- General Info Date of Service: 02/18/17 Admission Dx/Problem (Free Text): This afternoon the patient was noted to be more anxious , and rocking back and forth while sitting up in bed. She was also walking up and down the halls earlier today. She was weaned down to room air around noon. She reported feeling anxiety. She did not report any shortness of breath, chest pain, abdominal pain or nausea. - Patient Data Vitals - most recent: Last Vital Signs Temp 36.5 C 02/18/17 08:37 Pulse 78 02/18/17 08:37 Resp 20 02/18/17 08:37 BP 127/60 02/18/17 08:37 Pulse Ox 92 L 02/18/17 14:37 Weight - most recent: 78.245 kg I&O - last 24 hours: Intake & Output 02/18/17 02/18/17 02/18/17 06:59 14:59 22:59 Intake Total 2104 120 Output Total 1000 Balance 1104 120 Lab Results last 24 hrs: Laboratory Results - last 24 hr 02/18/17 02/18/17 02/18/17 Range/Units 05:25 05:25 14:15 WBC 13.73 H (3.98-10.04) K/mm3 RBC 3.58 L (3.98-5.22) M/mm3 Hgb 8.5 L (11.2-15.7) gm/L Hct 28.1 L (34.1-44.9) % MCV 78.5 L (79.4-94.8) fl MCH 23.7 L (25.6-32.2) pg MCHC 30.2 L (32.2-35.5) g/dl RDW Std Deviation 57.6 H (36.4-46.3) fL Plt Count 356 (182-369) K/mm3 MPV 10.2 (9.4-12.3) fl Neut % (Auto) 76.0 H (34.0-71.1) % Lymph % (Auto) 10.1 L (19.3-51.7) % [place] % (Auto) 8.0 (4.7-12.5) % Eos % (Auto) 1.7 (0.7-5.8) Baso % (Auto) 0.1 (0.1-1.2) % Neut # (Auto) 10.44 H (1.56-6.13) K/mm3 Lymph # (Auto) 1.39 (1.18-3.74) K/mm3 [place] # (Auto) 1.10 H (0.24-0.36) K/mm3 Eos # (Auto) 0.23 (0.04-0.36) K/mm3 Baso # (Auto) 0.01 (0.01-0.08) K/mm3 Manual Slide Review Abnormal smear Puncture Site Rt radial ABG pH 7.39 (7.35-7.45) ABG pCO2 25.2 L (35.0-45.0) mmHg ABG pO2 53.0 L (80.0-100.0) mmHg ABG HCO3 15 L (22.0-26.0) meq/L ABG O2 Saturation 87.4 L (96.0-97.0) % ABG Base Excess -8.4 L (-2-2.0) Severino Test Positive O2 Delivery Device Room air FiO2 0.00 L (21.00-100.00) % Sodium 141 (136-145) mEq/L Potassium 3.9 (3.5-5.1) mEq/L Chloride 111 H (98-107) mEq/L Carbon Dioxide 19 L (21-32) mEq/L Anion Gap 14.9 (5-15) BUN 3 L (7-18) mg/dL Creatinine 0.9 (0.55-1.02) mg/dL Est Cr Clr Drug Dosing 58.67 mL/min Estimated GFR (MDRD) > 60 (>60) mL/min BUN/Creatinine Ratio 3.3 L (14-18) Glucose 88 (80-115) mg/dL Calcium 7.8 L (8.5-10.1) mg/dL C-Reactive Protein 4.9 H* (<1.0) mg/dL [facility] Results last 24 hrs: Microbiology 02/15/17 19:50 Urine Culture - Final Urine, Clean Catch Escherichia Coli Med Orders - Current: Current Medications Albuterol/Ipratropium (Duoneb 3.0-0.5 Mg/3 Ml) 3 ml NEB Q6HRRT [facility] Last Admin: 02/18/17 11:36 Dose: 3 ml Alprazolam (Xanax) 0.5 mg PO TID PRN PRN Reason: Anxiety Last Admin: 02/18/17 14:27 Dose: 0.5 mg Aspirin (Aspirin) 81 mg PO DAILY [facility] Last Admin: 02/18/17 08:01 Dose: 81 mg Benztropine Mesylate (Cogentin) 1 mg PO DAILY [facility] Last Admin: 02/18/17 08:01 Dose: 1 mg Bupropion HCl (Wellbutrin Xl) 150 mg PO DAILY [facility] Last Admin: 02/18/17 08:01 Dose: 150 mg Enoxaparin Sodium (Lovenox) 40 mg SUBCUT DAILY [facility] Last Admin: 02/18/17 08:02 Dose: 40 mg Potassium Chloride/Sodium Chloride (1/2 Ns With 20 Meq Kcl) 1,000 mls @ 125 mls /hr IV ASDIRECTED [facility] Last Admin: 02/18/17 08:05 Dose: 125 mls/hr Levofloxacin/Dextrose 750 mg/ (Premix) 150 mls @ 100 mls/hr IV Q24H [facility] Last Admin: 02/18/17 14:24 Dose: 100 mls/hr Piperacillin Sod/Tazobactam (Sod 4.5 gm/ Sodium Chloride) 100 mls @ 25 mls/hr IV Q8H [facility] Last Admin: 02/18/17 09:33 Dose: 25 mls/hr Pantoprazole Sodium (Protonix) 40 mg PO DAILY [facility] Last Admin: 02/18/17 08:02 Dose: 40 mg Propranolol HCl (Inderal) 40 mg PO BID [facility] Last Admin: 02/18/17 08:01 Dose: 40 mg Saccharomyces Boulardii (Florastor) 250 mg PO DAILY [facility] Last Admin: 02/18/17 08:01 Dose: 250 mg Simvastatin (Zocor) 20 mg PO DAILY [facility] Last Admin: 02/18/17 08:02 Dose: 20 mg Discontinued Medications Haloperidol Lactate (Haldol) 2 mg IVPUSH ONETIME ONE Stop: 02/16/17 13:04 Last Admin: 02/16/17 13:41 Dose: 2 mg Levofloxacin/Dextrose 750 mg/ (Premix) 150 mls @ 100 mls/hr IV ONETIME ONE Stop: 02/15/17 12:42 Last Admin: 02/15/17 14:00 Dose: 100 mls/hr Sodium Chloride (Normal Saline) 1,000 mls @ 250 mls/hr IV ASDIRECTED [facility] Dextrose/Sodium Chloride (Dextrose 5%-Normal Saline) 1,000 mls @ 250 mls/hr IV ASDIRECTED [facility] Last Admin: 02/15/17 14:00 Dose: 250 mls/hr Piperacillin Sod/Tazobactam (Sod 4.5 gm/ Sodium Chloride) 100 mls @ 200 mls/hr IV ONETIME ONE Stop: 02/16/17 10:29 Last Admin: 02/16/17 10:23 Dose: 200 mls/hr Magnesium Sulfate 2 gm/ Premix 50 mls @ 25 mls/hr IV ONETIME ONE Stop: 02/16/17 21:59 Last Admin: 02/16/17 21:57 Dose: 25 mls/hr Non-Formulary Medication (Haloperidol Decanoate) 150 mg IM ASDIRECTED [facility] - Exam Physical Findings Comments:: Vitals: as above General: alert and oriented. NAD Psych: appears anxious. cooperative with exam. HEENT: normocephalic, atraumatic. EOMI Cardiac: Normal S1, S2. regular rate. No murmurs rubs, or gallops. No JVD noted. Lungs: breathing somewhat fast. Decreased breath sounds in the right mid and lower lung wyman. There is some egophony in the bibasilar region. Abd: Soft, NT/ND. No HSM noted. Skin: no new visible rashes or purpura noted Neuro: CN grossly intact. Strength intact and adequate bilaterally. - Problem List & Annotations (1) CAP (community acquired pneumonia) SNOMED Code(s): 059543238 Code(s): J18.9 - PNEUMONIA, UNSPECIFIED ORGANISM Status: Acute Current Visit: Yes (2) Acute anxiety SNOMED Code(s): 28611858 Code(s): F41.9 - ANXIETY DISORDER, UNSPECIFIED Status: Acute Current Visit: Yes (3) Hypoxia SNOMED Code(s): 187899716, 394089600 Code(s): R09.02 - HYPOXEMIA Status: Acute Current Visit: Yes (4) UTI (urinary tract infection) SNOMED Code(s): 87267473 Code(s): N39.0 - URINARY TRACT INFECTION, SITE NOT SPECIFIED Status: Resolved Current Visit: No Qualifiers: Urinary tract infection type: acute cystitis Hematuria presence: without hematuria Qualified Code(s): N30.00 - Acute cystitis without hematuria - Problem List Review Problem List Initiated/Reviewed/Updated: Yes - My Orders Last 24 Hours: My Active Orders 02/18/17 14:08 ALPRAZolam [Xanax] 0.5 mg PO TID PRN 02/18/17 15:02 LACTIC ACID [CHEM] Stat - Plan Plan:: Acute hypoxic respiratory failure secondary to pneumonia. Addressed as mentioned below. CAP -CXR right lower lobe infiltrate -associated with hypoxia was seen by PCP. -decrease antibiotics from IV Zosyn and levofloxacin to ceftriaxone today -Continue nebulizers next Acute anxiety with some respiratory alkalosis combined with metabolic acidosis. -There is no elevated. We will check lactic acid. I do believe anxiety is driving her primary respiratory alkalosis. -We'll start Xanax PRN (Pt states she normally takes this at home) Dehydration, resolved. Chronic medical conditions: Psychiatric history, schizophrenia - cont her psych meds GERD Hyperlipdemia LOS<96, DC expected on 02/19/17.
[2017-02-19] MEDS: Albuterol/Ipratropium 3.0-0.5 MG/3 ML Neb Soln NEB SCH ×2 (06:37→12:22)
[2017-02-19] MEDS: Propranolol 40 MG Tab PO SCH (08:07)
[2017-02-19] MEDS: Enoxaparin 40 MG/0.4 ML Syringe SUBCUT SCH (08:07)
[2017-02-19] MEDS: Benztropine 1 MG Tab PO SCH (08:07)
[2017-02-19] MEDS: Aspirin 81 MG Tab.Chew PO SCH (08:07)
[2017-02-19] MEDS: Simvastatin 20 MG Tab PO SCH (08:07)
[2017-02-19] MEDS: buPROPion 150 MG Tab.ER PO SCH (08:07)
[2017-02-19] MEDS: Pantoprazole 40 MG Tab.CR PO SCH (08:07)
[2017-02-19] MEDS: Saccharomyces Boulardii (Probiotic) 250 MG Cap PO SCH (08:07)
[2017-02-19 08:47] VITALS: BP 116/71
[2017-02-19] MEDS ORDERED: cefTRIAXone 1 GM in Sodium Chloride 0.9% 100 ML IV SCH (09:00)
--- NOTE | 2017-02-19 09:33 | PCM.DCSUM1 ---
Discharge Summary - Hospital Course Free Text/Narrative:: 72 year old female with SOB, pleuritic chest pain who on CXR has RLL infiltrate , was seen and evaluated by her PCP and sent to the ED where she received IV Levaquin. Oxygen was also provide, O2 saturation improved to 94% on 2 l/m via NC. WBC 17.3/Bands 11/CRP 13.1; Bun 22/Cr 1.1/GFR 49, CKD III. The patient will be admitted to [facility]. Patient was admitted for treatment of RLL pneumonia. Blood cultures were negative, flu negative, mycoplasma negative. UA was positive with UC + for ecoli- pansensitive on sensitivity. She was intially treated with 4 days of levaquin, 3 days of zosyn and transitioned to Rocephin for UTI/pneumonia. RT for aggressive pulmonary toilet. She was maintained on supplemental oxygen with attempts to wean multiple times; on day of discharge she was able to maintain her oxygen saturations both with rest and activity and will be discharged home on room air. She had good response with WBC, CRP improving. She will follow up with her PCP, Dr. Blanco within 5-7 days of discharge for hospital follow up visit. - Discharge Data Discharge Date: 02/19/17 (admit date 02/15/17) Discharge Disposition: DC/Tfer to Other 72 Condition: Good - Patient Summary/Data Operative Procedure(s) Performed: None Complications: None Consults: Consultations 02/16/17 11:50 OT Evaluation and Treatment [CONS] Routine PT Evaluation and Treatment [CONS] Routine 02/18/17 16:47 Consult to Dietary [Consult to Media Producer] [CONS] Routine Labs Pending at D/C: None Recommended Follow-up Testing/Procedures: Follow up with PCP, Dr. Blanco within 5-7 days of discharge; recommend f/up CXR in 2-3 weeks. Push fluids Continue to cough and deep breath, incentive spirometry every 2 hours while awake Ambulate 3-4 times daily Supplemental oxygen to keep sats >90%- 1-2L/NC continuous Planned Operative Procedure(s) after DC: None Hospital Course: As above - Patient Instructions Diet: Usual Diet as Tolerated, Drink 8-10+ Glasses/Day Activity: As Tolerated Showering/Bathing: May Shower Notify Provider of: Fever, Increased Pain, Swelling and Redness, Nausea and/or Vomiting (worsening cough, shortness of breath, chest pain, weakness, other ?'s or concerns) - Discharge Plan Prescriptions/Med Rec: Albuterol/Ipratropium [DuoNeb 3.0-0.5 MG/3 ML] 3 ml NEB TID #1 box Cephalexin [Keflex] 500 mg PO TID #30 capsule Home Medications: Home Meds Omeprazole 20 mg PO DAILY 01/28/16 [History] Propranolol [Inderal] 40 mg PO BID 01/28/16 [History] buPROPion [buPROPion XL] 150 mg PO DAILY 01/28/16 [History] Benztropine Mesylate 1 mg PO DAILY 10/14/16 [History] Haloperidol Decanoate [Haloperidol Decanoate 100] 150 mg IM ASDIRECTED 10/14/16 [History] Aspirin 81 mg PO DAILY #30 tab.chew 10/18/16 [Rx] Pravastatin Sodium [Pravastatin (Pravachol)] 40 mg PO DAILY #30 tablet 10/18/16 [Rx] Albuterol/Ipratropium [DuoNeb 3.0-0.5 MG/3 ML] 3 ml NEB TID #1 box 02/19/17 [Rx] Cephalexin [Keflex] 500 mg PO TID #30 capsule 02/19/17 [Rx] Patient Handouts: Urinary Tract Infection, Adult, Community-Acquired Pneumonia , Adult, [id number] Forms: ED Department Discharge Referrals: Herman Blanco MD [Primary Care Provider] - - Discharge Summary/Plan Comment DC Time >30 min.: Yes (40 min) - General Info Date of Service: 02/19/17 Admission Dx/Problem (Free Text: This afternoon the patient was noted to be more anxious , and rocking back and forth while sitting up in bed. She was also walking up and down the halls earlier today. She was weaned down to room air around noon. She reported feeling anxiety. She did not report any shortness of breath, chest pain, abdominal pain or nausea. Functional Status: Reports: pain controlled, tolerating diet, ambulating, urinating. Denies: new symptoms - Review of Systems General: Reports: No Symptoms, Weakness (improved) HEENT: Reports: no symptoms Pulmonary: Reports: no symptoms, cough (minimal; much improved). Denies: shortness of breath, wheezing Cardiovascular: Reports: No Symptoms. Denies: Chest Pain, Palpitations, Dyspnea on Exertion Gastrointestinal: Reports: No symptoms Genitourinary: Reports: no symptoms Musculoskeletal: Reports: no symptoms Skin: Reports: no symptoms Neurological: Reports: No Symptoms Psychiatric: Reports: anxiety (improved with xanax PRN), agitation (improved with xanax prn) - Patient Data Vitals - Most Recent: Last Vital Signs Temp 97.3 F 02/19/17 08:38 Pulse 79 02/19/17 08:38 Resp 16 02/19/17 08:38 BP 116/71 02/19/17 08:38 Pulse Ox 89 L 02/19/17 08:38 Weight - Most Recent: 171 lb I&O - Last 24 hours: Intake & Output 02/18/17 02/19/17 02/19/17 22:59 06:59 14:59 Intake Total 590 200 Output Total 2250 1000 Balance -1660 -800 Lab Results - Last 24 hrs: Laboratory Results - last 24 hr 02/18/17 02/18/17 02/19/17 Range/Units 14:15 15:18 05:45 WBC 12.02 H (3.98-10.04) K/mm3 RBC 3.71 L (3.98-5.22) M/mm3 Hgb 8.6 L (11.2-15.7) gm/L Hct 29.5 L (34.1-44.9) % MCV 79.5 (79.4-94.8) fl MCH 23.2 L (25.6-32.2) pg MCHC 29.2 L (32.2-35.5) g/dl RDW Std Deviation 60.9 H (36.4-46.3) fL Plt Count 391 H (182-369) K/mm3 MPV 10.1 (9.4-12.3) fl Neut % (Auto) 72.8 H (34.0-71.1) % Lymph % (Auto) 12.7 L (19.3-51.7) % [place] % (Auto) 8.9 (4.7-12.5) % Eos % (Auto) 1.7 (0.7-5.8) Baso % (Auto) 0.2 (0.1-1.2) % Neut # (Auto) 8.74 H (1.56-6.13) K/mm3 Lymph # (Auto) 1.53 (1.18-3.74) K/mm3 [place] # (Auto) 1.07 H (0.24-0.36) K/mm3 Eos # (Auto) 0.21 (0.04-0.36) K/mm3 Baso # (Auto) 0.03 (0.01-0.08) K/mm3 Manual Slide Review Abnormal smear Puncture Site Rt radial ABG pH 7.39 (7.35-7.45) ABG pCO2 25.2 L (35.0-45.0) mmHg ABG pO2 53.0 L (80.0-100.0) mmHg ABG HCO3 15 L (22.0-26.0) meq/L ABG O2 Saturation 87.4 L (96.0-97.0) % ABG Base Excess -8.4 L (-2-2.0) Severino Test Positive O2 Delivery Device Room air FiO2 0.00 L (21.00-100.00) % Lactic Acid 1.1 (0.4-2.0) mmol/L C-Reactive Protein (<1.0) mg/dL 02/19/17 Range/Units 05:45 WBC (3.98-10.04) K/mm3 RBC (3.98-5.22) M/mm3 Hgb (11.2-15.7) gm/L Hct (34.1-44.9) % MCV (79.4-94.8) fl MCH (25.6-32.2) pg MCHC (32.2-35.5) g/dl RDW Std Deviation (36.4-46.3) fL Plt Count (182-369) K/mm3 MPV (9.4-12.3) fl Neut % (Auto) (34.0-71.1) % Lymph % (Auto) (19.3-51.7) % [place] % (Auto) (4.7-12.5) % Eos % (Auto) (0.7-5.8) Baso % (Auto) (0.1-1.2) % Neut # (Auto) (1.56-6.13) K/mm3 Lymph # (Auto) (1.18-3.74) K/mm3 [place] # (Auto) (0.24-0.36) K/mm3 Eos # (Auto) (0.04-0.36) K/mm3 Baso # (Auto) (0.01-0.08) K/mm3 Manual Slide Review Puncture Site ABG pH (7.35-7.45) ABG pCO2 (35.0-45.0) mmHg ABG pO2 (80.0-100.0) mmHg ABG HCO3 (22.0-26.0) meq/L ABG O2 Saturation (96.0-97.0) % ABG Base Excess (-2-2.0) Severino Test O2 Delivery Device FiO2 (21.00-100.00) % Lactic Acid (0.4-2.0) mmol/L C-Reactive Protein 3.4 H* (<1.0) mg/dL Med Orders - Current: Current Medications Albuterol/Ipratropium (Duoneb 3.0-0.5 Mg/3 Ml) 3 ml NEB Q6HRRT [facility] Last Admin: 02/19/17 06:37 Dose: 3 ml Alprazolam (Xanax) 0.5 mg PO TID PRN PRN Reason: Anxiety Last Admin: 02/18/17 14:27 Dose: 0.5 mg Aspirin (Aspirin) 81 mg PO DAILY [facility] Last Admin: 02/19/17 08:07 Dose: 81 mg Benztropine Mesylate (Cogentin) 1 mg PO DAILY [facility] Last Admin: 02/19/17 08:07 Dose: 1 mg Bupropion HCl (Wellbutrin Xl) 150 mg PO DAILY [facility] Last Admin: 02/19/17 08:07 Dose: 150 mg Enoxaparin Sodium (Lovenox) 40 mg SUBCUT DAILY [facility] Last Admin: 02/19/17 08:07 Dose: 40 mg Ceftriaxone Sodium 1 gm/ (Sodium Chloride) 100 mls @ 200 mls/hr IV DAILY [facility] Last Admin: 02/19/17 08:31 Dose: 200 mls/hr Pantoprazole Sodium (Protonix) 40 mg PO DAILY [facility] Last Admin: 02/19/17 08:07 Dose: 40 mg Propranolol HCl (Inderal) 40 mg PO BID [facility] Last Admin: 02/19/17 08:07 Dose: 40 mg Saccharomyces Boulardii (Florastor) 250 mg PO DAILY [facility] Last Admin: 02/19/17 08:07 Dose: 250 mg Simvastatin (Zocor) 20 mg PO DAILY [facility] Last Admin: 02/19/17 08:07 Dose: 20 mg Discontinued Medications Haloperidol Lactate (Haldol) 2 mg IVPUSH ONETIME ONE Stop: 02/16/17 13:04 Last Admin: 02/16/17 13:41 Dose: 2 mg Levofloxacin/Dextrose 750 mg/ (Premix) 150 mls @ 100 mls/hr IV ONETIME ONE Stop: 02/15/17 12:42 Last Admin: 02/15/17 14:00 Dose: 100 mls/hr Sodium Chloride (Normal Saline) 1,000 mls @ 250 mls/hr IV ASDIRECTED [facility] Dextrose/Sodium Chloride (Dextrose 5%-Normal Saline) 1,000 mls @ 250 mls/hr IV ASDIRECTED [facility] Last Admin: 02/15/17 14:00 Dose: 250 mls/hr Potassium Chloride/Sodium Chloride (1/2 Ns With 20 Meq Kcl) 1,000 mls @ 125 mls /hr IV ASDIRECTED [facility] Last Admin: 02/18/17 08:05 Dose: 125 mls/hr Piperacillin Sod/Tazobactam (Sod 4.5 gm/ Sodium Chloride) 100 mls @ 200 mls/hr IV ONETIME ONE Stop: 02/16/17 10:29 Last Admin: 02/16/17 10:23 Dose: 200 mls/hr Levofloxacin/Dextrose 750 mg/ (Premix) 150 mls @ 100 mls/hr IV Q24H [facility] Last Admin: 02/18/17 14:24 Dose: 100 mls/hr Piperacillin Sod/Tazobactam (Sod 4.5 gm/ Sodium Chloride) 100 mls @ 25 mls/hr IV Q8H [facility] Last Admin: 02/18/17 09:33 Dose: 25 mls/hr Magnesium Sulfate 2 gm/ Premix 50 mls @ 25 mls/hr IV ONETIME ONE Stop: 02/16/17 21:59 Last Admin: 02/16/17 21:57 Dose: 25 mls/hr Non-Formulary Medication (Haloperidol Decanoate) 150 mg IM ASDIRECTED [facility] - Exam Quality Assessment: Reports: supplemental oxygen, DVT prophylaxis General: Reports: alert, cooperative, no acute distress HEENT: Reports: Pupils equal, Pupils reactive, EOMI, Mucous membr. moist/pink Neck: Reports: supple Lungs: Reports: Clear to auscultation, Normal respiratory effort, Wheezing ( scattered throughout; much improved) Cardiovascular: Reports: Regular Rate, Regular Rhythm Abdomen: Reports: bowel sounds present, soft, no tenderness, no distension (Female) Exam: Deferred Rectal (Female) Exam: Deferred Extremities: Reports: no edema, no calf tenderness Neurological: Reports: no new focal deficit Psy/Mental Status: Reports: alert, normal affect, normal mood *Q Meaningful Use (DIS) - VTE *Q VTE Criteria *Q: - Stroke *Q Stroke Criteria *Q: - AMI *Q AMI Criteria *Q:
--- NOTE | 2017-02-19 10:54 | CR ---
Chest: Two views of the chest were obtained. Comparison: Previous chest x-ray of 01/28/16. Increased density noted within both lung bases. Findings are worse on the right side. On the lateral view this appears to be within a portion of the right middle lobe. Upper lungs are clear. Heart size and mediastinum are normal. Bony structures show moderate anterior wedge deformity at the thoracolumbar junction which appears old. Impression: 1. Increased density within both lung bases/right middle lobe. Findings worse on the right side. Findings presumably represent pneumonia. Please correlate if this matches the patient's clinical symptoms. 2. Other incidental findings. Diagnostic code #3
== END 2017-02-19 13:10 | disposition other institution (70) | DRG 193 ==
LOC: JD.ED 10:41 → JD.MS 12:39
PROVIDERS: ADMIT Emergency Medicine; ATTEND Internal Medicine Cardiovascular Disease
DX: J18.9 Pneumonia, unspecified organism (principal); R09.02 Hypoxemia; J96.01 Acute respiratory failure with hypoxia; E87.4 Mixed disorder of acid-base balance; N39.0 Urinary tract infection, site not specified; E86.0 Dehydration; B96.20 Unspecified Escherichia coli [E. coli] as the cause of diseases classified elsewhere; F32.9 Major depressive disorder, single episode, unspecified; F20.9 Schizophrenia, unspecified; K21.9 Gastro-esophageal reflux disease without esophagitis; E78.5 Hyperlipidemia, unspecified; D50.9 Iron deficiency anemia, unspecified; I65.23 Occlusion and stenosis of bilateral carotid arteries; F41.9 Anxiety disorder, unspecified; Z88.8 Allergy status to other drugs, medicaments and biological substances; Z79.82 Long term (current) use of aspirin; Z79.899 Other long term (current) drug therapy; R06.02 Shortness of breath
CPT/HCPCS: 36415; 36600; 71020; 71020-26; 80048; 80053; 81001; 82803; 83605; 83735; 83880; 84484; 85025; 86140; 86738; 87040; 87086; 87088; 87186; 87804; 87899; 93005; 94640-76; 94664; 94667; 94760; 94761; 96365; 97110-GO; 97110-GP; 97116-GP; 97162-GP; 97165-GO; 97530-GO; 97530-GP; 97535-GO; 99285; 99285-25; A9270-GY; J0696; J1630; J1650; J1956; J2543; J3475; J3480; J7030; J7042

== ENCOUNTER 2019-12-27 02:25 | Emergency (ER) | payer MEDICARE, BC, MEDICAID ==
[2019-12-27 02:45] VITALS: BP 149/56; PULSE 68
--- NOTE | 2019-12-27 02:53 | EDM.PDOC ---
ED HPI GENERAL MEDICAL PROBLEM - General Chief Complaint: Abdominal Pain Stated Complaint: [facility] Time Seen by Provider: 12/27/19 02:49 Source of Information: Reports: Patient History Limitations: Reports: No Limitations - History of Present Illness INITIAL COMMENTS - FREE TEXT/NARRATIVE: This is a 74-year-old female. She lives at [facility]. This morning she awoke with right flank pain. She states she has had kidney stones in the past and she thinks that is what this right flank pain is. She denies any nausea and vomiting with the pain. She denies any diarrhea or constipation recently and she has had no urinary symptoms recently. She denies any fever or chills. The right flank pain is actually resolving at this time and she never did get any pain medications. She is in no distress. Left Upper Abdomen Pain Score (Numeric/FACES): 6 - Related Data Allergies Allergy/AdvReac Type Severity Reaction Status Date / Time prochlorperazine Allergy Cannot Verified 12/27/19 02:43 Remember Home Meds: Home Meds Omeprazole 20 mg PO DAILY 01/28/16 [History] Propranolol [Inderal] 40 mg PO BID 01/28/16 [History] buPROPion [buPROPion XL] 150 mg PO DAILY 01/28/16 [History] Benztropine Mesylate 1 mg PO DAILY 10/14/16 [History] Aspirin 81 mg PO DAILY #30 tab.chew 10/18/16 [Rx] Pravastatin Sodium [Pravastatin (Pravachol)] 40 mg PO DAILY #30 tablet 10/18/16 [Rx] Cephalexin [Keflex] 500 mg PO TID #15 capsule 12/27/19 [Rx] Loperamide [Imodium] 2 mg PO Q4H PRN 12/27/19 [History] risperiDONE 1 mg PO BID 12/27/19 [History] Past Medical History HEENT History: Reports: Impaired Vision, Other (See Below) Other HEENT History: glasses, missing teeth Cardiovascular History: Reports: Other (See Below) Other Cardiovascular History: dyslipidemia. carotid atherosclerosis Respiratory History: Reports: None Gastrointestinal History: Reports: GERD Genitourinary History: Reports: UTI, Recurrent Musculoskeletal History: Reports: None Neurological History: Reports: None Psychiatric History: Reports: Depression Endocrine/Metabolic History: Reports: None - Past Surgical History HEENT Surgical History: Reports: Cataract Surgery Social & Family History - Family History Family Medical History: Noncontributory - Caffeine Use Caffeine Use: Reports: None - Living Situation & Occupation Living situation: Reports: Extended Care Facility Occupation: Retired ED ROS GENERAL - Review of Systems Review Of Systems: See Below Constitutional: Denies: Fever, Chills HEENT: Reports: No Symptoms Respiratory: Denies: Shortness of Breath, Cough Cardiovascular: Denies: Chest Pain Endocrine: Reports: No Symptoms GI/Abdominal: Reports: Abdominal Pain. Denies: Diarrhea, Nausea, Vomiting : Reports: Flank Pain Musculoskeletal: Reports: Other (Arthralgias) Skin: Reports: No Symptoms Neurological: Reports: No Symptoms Psychiatric: Reports: No Symptoms ED EXAM, RENAL/ - Physical Exam Exam: See Below Exam Limited By: No Limitations General Appearance: Alert, WD/WN, No Apparent Distress Eye Exam: Bilateral Eye: Normal Inspection Ears: Normal External Exam Nose: Normal Inspection Throat/Mouth: Normal Inspection, Normal Lips, Normal Voice, No Airway Compromise Head: Normocephalic Neck: Supple Respiratory/Chest: No Respiratory Distress, Lungs Clear, Normal Breath Sounds Cardiovascular: Regular Rate, Rhythm, No Murmur GI/Abdominal: Normal Bowel Sounds, Soft, Other (She has no tenderness on palpation of her entire 4 quadrants, the right flank she has no tenderness either, she does not have a gallbladder) Back Exam: Decreased Range of Motion Extremities: Normal Inspection Neurological: Alert, Oriented Psychiatric: Normal Affect, Normal Mood Skin Exam: Warm, Dry Course - Vital Signs Last Recorded V/S: Last Vital Signs Temp 97.9 F 12/27/19 02:43 Pulse 68 12/27/19 02:43 Resp 19 12/27/19 02:43 BP 149/56 H 12/27/19 02:43 Pulse Ox 92 L 12/27/19 02:43 - Orders/Labs/Meds Orders: Active Orders 24 hr Category Date Time Status KUB [Abdomen 1V Flat] [CR] Stat Exams 12/27/19 02:50 Taken cefTRIAXone 1 GM with Lidocaine 1% 2.1 ML IM Med 12/27/19 05:15 Ordered cefTRIAXone [Rocephin] 1 gm Lidocaine 1% [Xylocaine 1%] 2.1 ml IM Q24H Labs: Laboratory Tests 02/08/20 02/08/20 02/08/20 Range/Units 03:53 03:53 04:22 WBC 7.79 (3.98-10.04) K/mm3 RBC 4.41 (3.98-5.22) M/mm3 Hgb 10.1 L D (11.2-15.7) gm/dl Hct 34.8 (34.1-44.9) % MCV 78.9 L (79.4-94.8) fl MCH 22.9 L (25.6-32.2) pg MCHC 29.0 L (32.2-35.5) g/dl RDW Std Deviation 52.0 H (36.4-46.3) fL Plt Count 184 D (182-369) K/mm3 MPV 11.1 (9.4-12.3) fl Neut % (Auto) 72.8 H (34.0-71.1) % Lymph % (Auto) 15.8 L (19.3-51.7) % [place] % (Auto) 8.6 (4.7-12.5) % Eos % (Auto) 2.4 (0.7-5.8) Baso % (Auto) 0.3 (0.1-1.2) % Neut # (Auto) 5.67 (1.56-6.13) K/mm3 Lymph # (Auto) 1.23 (1.18-3.74) K/mm3 [place] # (Auto) 0.67 H (0.24-0.36) K/mm3 Eos # (Auto) 0.19 (0.04-0.36) K/mm3 Baso # (Auto) 0.02 (0.01-0.08) K/mm3 Manual Slide Review Abnormal smear Sodium 142 (136-145) mEq/L Potassium 4.0 (3.5-5.1) mEq/L Chloride 109 H (98-107) mEq/L Carbon Dioxide 21 (21-32) mEq/L Anion Gap 16.0 H (5-15) BUN 16 (7-18) mg/dL Creatinine 1.1 H (0.55-1.02) mg/dL Est Cr Clr Drug Dosing 43.28 mL/min Estimated GFR (MDRD) 49 (>60) mL/min BUN/Creatinine Ratio 14.5 (14-18) Glucose 100 (83-115) mg/dL Calcium 8.3 L (8.5-10.1) mg/dL Total Bilirubin 0.3 (0.2-1.0) mg/dL AST 13 L (15-37) U/L ALT 16 (14-59) U/L Alkaline Phosphatase 91 (46-116) U/L Total Protein 6.2 L (6.4-8.2) g/dl Albumin 3.2 L (3.4-5.0) g/dl Globulin 3.0 gm/dL Albumin/Globulin Ratio 1.1 (1-2) Urine Color Light yellow (Yellow) Urine Appearance Slt cloudy H (Clear) Urine pH 7.0 (5.0-8.0) Ur Specific [place] 1.020 (1.005-1.030) Urine Protein Negative (Negative) Urine Glucose (UA) Negative (Negative) Urine Ketones Negative (Negative) Urine Occult Blood Trace-intact H (Negative) Urine Nitrite Positive H (Negative) Urine Bilirubin Negative (Negative) Urine Urobilinogen 0.2 (0.2-1.0) Ur Leukocyte Esterase 3+ H (Negative) Urine RBC 5-10 H (0-5) /hpf Urine WBC 20-30 H (0-5) /hpf Urine WBC Clumps Occasional (NOT SEEN) /hpf Ur Squamous Epith Cells 0-5 (0-5) /hpf Urine Bacteria Many H (FEW) /hpf Urine Mucus Few (FEW) /hpf - Radiology Interpretation Free Text/Narrative:: KUB does not show any acute stones however in the pelvis on the right side she is got what I believe is some phleboliths. - Re-Assessments/Exams Free Text/Narrative Re-Assessment/Exam: 12/27/19 05:16 I spoke to the patient regarding the blood work where she is anemic with a hemoglobin of 10.1 and she also has a suggestion of urinary tract infection which might account for the flank pain. I will give her a shot of antibiotics and put her on some antibiotics for about 5 days. She is good with this. Departure - Departure Time of Disposition: 05:17 Disposition: Home, Self-Care 01 Condition: Fair Clinical Impression: Right flank pain Urinary tract infection Qualifiers: Urinary tract infection type: acute cystitis Hematuria presence: with hematuria Qualified Code(s): N30.01 - Acute cystitis with hematuria Anemia Qualifiers: Anemia type: iron deficiency Iron deficiency anemia type: unspecified iron deficiency Qualified Code(s): D50.9 - Iron deficiency anemia, unspecified - Discharge Information *PRESCRIPTION DRUG MONITORING PROGRAM REVIEWED*: Not Applicable *COPY OF PRESCRIPTION DRUG MONITORING REPORT IN PATIENT TAMY: Not Applicable Prescriptions: Cephalexin [Keflex] 500 mg PO TID #15 capsule Instructions: Urinary Tract Infection, Adult, [id number] Referrals: Herman Blanco MD [Primary Care Provider] - Forms: ED Department Discharge Additional Instructions: Continue to drink lots of fluids to help flush out the kidneys, take the antibiotics until they are finished, follow-up with your family doctor later this week for recheck, if the right flank pain gets worse you could still have a kidney stone that might need a CAT scan to find, return to the ER if needed Sepsis Event Note - Evaluation Sepsis Screening Result: No Definite Risk - Focused Exam Vital Signs: Vital Signs Temp Pulse Resp BP Pulse Ox 12/27/19 02:43 97.9 F 68 19 149/56 H 92 L Date Exam was Performed: 12/27/19 Time Exam was Performed: 05:16 - My Orders Last 24 Hours: My Active Orders 12/27/19 02:50 KUB [Abdomen 1V Flat] [CR] Stat 12/27/19 05:15 cefTRIAXone 1 GM with Lidocaine 1% 2.1 ML IM cefTRIAXone [Rocephin] 1 gm Lidocaine 1% [Xylocaine 1%] 2.1 ml IM Q24H - Assessment/Plan Last 24 Hours: My Active Orders 12/27/19 02:50 KUB [Abdomen 1V Flat] [CR] Stat 12/27/19 05:15 cefTRIAXone 1 GM with Lidocaine 1% 2.1 ML IM cefTRIAXone [Rocephin] 1 gm Lidocaine 1% [Xylocaine 1%] 2.1 ml IM Q24H
[2019-12-27] MEDS ORDERED: cefTRIAXone 1 GM, Lidocaine 1% 2.1 ML IM SCH ×2 (05:15)
--- NOTE | 2019-12-27 08:29 | CR ---
Abdomen: Supine view of the abdomen was obtained. Comparison: No prior abdominal imaging is available Compression deformity noted of L1 which is most likely old. Scattered degenerative change is seen within the spine. Bony structures are osteopenic. Bowel gas pattern appears normal. Surgical clips are seen within the upper right abdomen. Impression: 1. Findings believed to be incidental as described above. 2. Nothing acute is appreciated on supine abdominal x-ray. Diagnostic code #2 This report was dictated in [place] Standard Time
== END 2019-12-27 06:38 | disposition home or self-care (01) ==
LOC: JD.ED 02:25
DX: N30.01 Acute cystitis with hematuria (principal); D50.9 Iron deficiency anemia, unspecified; Z79.82 Long term (current) use of aspirin; Z79.899 Other long term (current) drug therapy; Z88.8 Allergy status to other drugs, medicaments and biological substances
CPT/HCPCS: 36415; 74018; 80053; 81001; 85025; 87086; 87088; 87186; 96372; 99284; J0696; J2001; 99283

== ENCOUNTER 2020-08-11 17:38 | Emergency (ER) | payer MEDICARE, BC, MEDICAID ==
[2020-08-11] MEDS ORDERED: Dextrose 5%-0.9% NaCl 1,000 ML IV SCH ×3 (19:00→22:30)
--- NOTE | 2020-08-11 19:01 | EDM.PDOC ---
<Yazan Henderson - Last Filed: 08/13/20 07:10> ED HPI GENERAL MEDICAL PROBLEM - General Chief Complaint: Respiratory Problem Stated Complaint: [facility] Time Seen by Provider: 08/11/20 18:57 - Related Data Allergies Allergy/AdvReac Type Severity Reaction Status Date / Time prochlorperazine Allergy Cannot Verified 08/11/20 17:47 Remember Home Meds: Home Meds Omeprazole 20 mg PO DAILY 01/28/16 [History] Propranolol [Inderal] 40 mg PO BID 01/28/16 [History] buPROPion [buPROPion XL] 150 mg PO DAILY 01/28/16 [History] Benztropine Mesylate 1 mg PO BID 10/14/16 [History] Aspirin 81 mg PO DAILY #30 tab.chew 10/18/16 [Rx] Pravastatin Sodium [Pravastatin (Pravachol)] 40 mg PO DAILY #30 tablet 10/18/16 [Rx] Loperamide [Imodium] 2 mg PO Q4H 12/27/19 [History] risperiDONE 1 mg PO BID 12/27/19 [History] Course - Re-Assessments/Exams Free Text/Narrative Re-Assessment/Exam: 08/12/20 10:18 now has a bed available they will call us later when it is okay to send the patient. Most current temperature is 97.9 saturation is 90% on 4 L work in a bump her to 5 L and work on proper positioning of the patient. The patient's case was discussed with who believes they have a bed available for the patient however is can take them a couple hours to get the bed ready they will notify us when it is time to transfer the patient. 08/12/20 13:[address] Montes at [facility] in [place] he will accept the patient but would like for us to check a chest CTA first. Departure - Departure Time of Disposition: 15:05 Disposition: DC/Tfer to [facility] 02 Clinical Impression: COVID-19 determined by clinical diagnostic criteria Urinary tract infection Qualifiers: Urinary tract infection type: acute cystitis Hematuria presence: with hematuria Qualified Code(s): N30.01 - Acute cystitis with hematuria - Discharge Information Referrals: PCP,Unknown [Ordering Only Provider] - Forms: ED Department Discharge Additional Instructions: Patient was transferred to [facility] in [place] for management of COVID- 19 illness and urinary tract infection. <Sreedhar Olivo - Last Filed: 08/14/20 10:59> ED HPI GENERAL MEDICAL PROBLEM - General Source of Information: Reports: Patient, EMS, [facility] Records History Limitations: Reports: Altered Mental Status - History of Present Illness INITIAL COMMENTS - FREE TEXT/NARRATIVE: 75-year-old female presents to the ED per [facility] from [facility] where she resides. Patient was diagnosed with COVID-19 positivity 1 week ago. I believe all patients i.e. 30 patients at [facility] are all positive for COVID-19 at this time. She presents due to confusion and hypoxia with O2 sats reported to be 82 to 84% on room air. Questionable whether she is running a low-grade fever. Does have intermittent cough. Patient has not ate or drank well for several days. O2 sats here were 84% on room air and the patient was started on O2 at 4 L/min by nasal cannula by triage nursing staff.. Patient is confused and therefore no useful history can be gleaned from the patient. She has a restless and agitated. This is presumably due to hypercarbia with hypoxemia. Onset: Gradual Onset Date: 08/04/20 (Diagnosed with COVID-19 positivity 1 week ago.) Duration: Day(s):, Constant, Getting Worse Location: Reports: Chest (Productive sounding cough with hypoxemia fever restlessness and agitation.) Quality: Reports: Other (. Hypoxemia at rest 84% on room air.) Severity: Severe Improves with: Reports: None Worsens with: Reports: Movement Context: Reports: Sick Contact (Has COVID-19 illness as do all of the inpatients at [facility].), Other. Denies: Activity, Exercise, Lifting, Trauma Associated Symptoms: Reports: Confusion, Cough, cough w sputum, Loss of Appetite, Malaise, Shortness of Breath, Weakness. Denies: Nausea/Vomiting, Rash, Seizure, Syncope Treatments DRAW IN HAND: Reports: Other (see below) (Some questionable whether she is kept on any of her medications for the last 2 days.) Past Medical History HEENT History: Reports: Impaired Vision, Other (See Below) Other HEENT History: glasses, missing teeth Cardiovascular History: Reports: Other (See Below) Other Cardiovascular History: dyslipidemia. carotid atherosclerosis Respiratory History: Reports: None Gastrointestinal History: Reports: GERD Genitourinary History: Reports: UTI, Recurrent Musculoskeletal History: Reports: None Neurological History: Reports: None Psychiatric History: Reports: Depression, Schizophrenia Endocrine/Metabolic History: Reports: None Hematologic History: Reports: Anemia - Infectious Disease History Infectious Disease History: Reports: Novel Coronavirus - Past Surgical History HEENT Surgical History: Reports: Cataract Surgery Social & Family History - Family History Family Medical History: Noncontributory - Tobacco Use Smoking Status *Q: Never Smoker Second Hand Smoke Exposure: No - Caffeine Use Caffeine Use: Reports: None - Recreational Drug Use Recreational Drug Use: No - Living Situation & Occupation Living situation: Reports: Extended Care Facility Occupation: Retired ED ROS GENERAL - Review of Systems Review Of Systems: Unable To Obtain Reason Not Obtained: Patient is confused and disoriented due to hypoxia ED EXAM, GENERAL - Physical Exam Exam: See Below Exam Limited By: Altered Mental Status (Restless and mildly agitated.) General Appearance: Lethargic, Moderate Distress, Other (Temperature is 36.6. Heart rate 78 and sinus respiratory to 30 with O2 sats of 82 to 84% on room air. Blood pressure 114 100 which is presumed incorrect due to pulse pressure being too close together. Patient is restless and therefore difficult to obtain an ac curate blood pressure at this time. When she settled down blood pressure settled at 67 over 50. Her abdomen feels warm to palpation her face feels cool to touch.) Eye Exam: Bilateral Eye: Normal Inspection (No scleral icterus.) Throat/Mouth: Other (Tongue is dry and coated as is the oropharynx.) Head: Atraumatic, Normocephalic, Other (No overt signs of head or neck trauma appreciated) Neck: Normal Inspection. No: Carotid Bruit, Lymphadenopathy (L), Lymphadenopathy (R) Respiratory/Chest: Respiratory Distress (Tachypnea at rest.), Decreased Breath Sounds ( noted. Creased air entry to the lower 25% of lungs bilaterally due to shallow breathing.), Rhonchi (Scattered rhonchi upper lobes) Cardiovascular: Regular Rate, Rhythm, No Edema, No Gallop, No Murmur, No Rub, Other (Heart sounds are difficult to hear due to adventitial sounds in the l ungs.). No: Normal Peripheral Pulses (Scattered rhonchi upper anterior lungs.) Peripheral Pulses: 1+: Posterior Tibial (L), Posterior Tibial (R), Dorsalis Pedis (L), Dorsalis Pedis (R), 2+: Carotid (L), Carotid (R) GI/Abdominal: No Distention, Abnormal Bowel Sounds (Bowel sounds are very quiet in all 4 quadrants.). No: Guarding, Rigid, Rebound Back Exam: Other (Kyphosis thoracic spine.) Extremities: Non-Tender, No Pedal Edema. No: Normal Range of Motion Neurological: Confused Psychiatric: Anxious, Other (Agitated and restless.) Skin Exam: Warm, Dry, Intact, Normal Color, No Rash EKG INTERPRETATION EKG Date: 08/11/20 Time: 19:10 Rhythm: NSR Rate (Beats/Min): 77 Abbott: Normal P-Wave: Enlarged (Consider left atrial hypertrophy.) QRS: Other (Decreased voltage limb and precordial leads.) ST-T: Depressed (Mild ST segment depression V3 to V6. T wave flattening 1 and aVL leads III and V2.) QT: Prolonged (Moderately prolonged) EKG Interpretation Comments: Abnormal ECG. Course - Vital Signs Last Recorded V/S: Last Vital Signs Temp 36.6 C 08/12/20 10:17 Pulse 80 08/12/20 06:02 Resp 16 08/12/20 06:02 BP 101/42 L 08/12/20 06:02 Pulse Ox 90 L 08/12/20 06:02 - Orders/Labs/Meds Labs: Laboratory Tests 08/11/20 08/11/20 08/11/20 Range/Units 19:20 19:59 20:39 WBC 6.50 (3.98-10.04) K/mm3 RBC 4.02 (3.98-5.22) M/mm3 Hgb 9.7 L (11.2-15.7) gm/dl Hct 32.7 L (34.1-44.9) % MCV 81.3 (79.4-94.8) fl MCH 24.1 L (25.6-32.2) pg MCHC 29.7 L (32.2-35.5) g/dl RDW Std Deviation 56.5 H (36.4-46.3) fL Plt Count 124 L (182-369) K/mm3 MPV 11.9 (9.4-12.3) fl Neutrophils % (Manual) 84 H (40-60) % Band Neutrophils % 0 (0-10) % Lymphocytes % (Manual) 9 L (20-40) % Atypical Lymphs % 0 % Monocytes % (Manual) 7 (2-10) % Eosinophils % (Manual) 0 L (0.7-5.8) % Basophils % (Manual) 0 L (0.1-1.2) Platelet Estimate Adequate Hypochromasia 2+ moderate Anisocytosis 2+ moderate Microcytosis 1+ slight RBC Morph Comment Abnormal PT (9.7-11.7) SECONDS INR APTT (22-31) SECONDS D-Dimer, Quantitative (0.19-0.50) mg/L Puncture Site Rt radial ABG pH 7.37 (7.35-7.45) ABG pCO2 26.7 L (35.0-45.0) mmHg ABG pO2 69.0 L (80.0-100.0) mmHg ABG HCO3 14.9 L (22.0-26.0) meq/L ABG O2 Saturation 91.0 L (96.0-97.0) % ABG Base Excess -8.9 L (-2-2.0) Severino Test Positive A-a Gradient 154 mmHg O2 Delivery Device Nasal cannula Oxygen Flow Rate 4.0 FiO2 36.00 (21.00-100.00) % Sodium (136-145) mEq/L Potassium (3.5-5.1) mEq/L Chloride (98-107) mEq/L Carbon Dioxide (21-32) mEq/L Anion Gap (5-15) BUN (7-18) mg/dL Creatinine (0.55-1.02) mg/dL Est Cr Clr Drug Dosing mL/min Estimated GFR (MDRD) (>60) mL/min BUN/Creatinine Ratio (14-18) Glucose (83-115) mg/dL Lactic Acid (0.4-2.0) mmol/L Calcium (8.5-10.1) mg/dL Magnesium (1.8-2.4) mg/dl Ferritin (8-252) ng/ml Total Bilirubin (0.2-1.0) mg/dL AST (15-37) U/L ALT (14-59) U/L Alkaline Phosphatase (46-116) U/L Lactate Dehydrogenase (81-234) U/L CK-MB (CK-2) (0-3.6) ng/ml Troponin I (0.00-0.056) ng/mL C-Reactive Protein (<1.0) mg/dL NT-Pro-B Natriuret Pep (0-125) pg/mL Total Protein (6.4-8.2) g/dl Albumin (3.4-5.0) g/dl Globulin gm/dL Albumin/Globulin Ratio (1-2) Urine Color Dark yellow (Yellow) Urine Appearance Cloudy H (Clear) Urine pH 6.5 (5.0-8.0) Ur Specific [place] > or = 1.030 (1.005-1.030) Urine Protein 2+ H (Negative) Urine Glucose (UA) Negative (Negative) Urine Ketones Trace H (Negative) Urine Occult Blood 1+ H (Negative) Urine Nitrite Negative (Negative) Urine Bilirubin 1+ H (Negative) Urine Urobilinogen 0.2 (0.2-1.0) Ur Leukocyte Esterase 1+ H (Negative) Urine RBC 10-20 H (0-5) /hpf Urine WBC 75-100 H (0-5) /hpf Ur Epithelial Cells 0-5 (0-5) /hpf Urine Bacteria Many H (FEW) /hpf Urine Mucus Few (FEW) /hpf 08/11/20 08/11/20 08/11/20 Range/Units 20:39 20:39 20:39 WBC (3.98-10.04) K/mm3 RBC (3.98-5.22) M/mm3 Hgb (11.2-15.7) gm/dl Hct (34.1-44.9) % MCV (79.4-94.8) fl MCH (25.6-32.2) pg MCHC (32.2-35.5) g/dl RDW Std Deviation (36.4-46.3) fL Plt Count (182-369) K/mm3 MPV (9.4-12.3) fl Neutrophils % (Manual) (40-60) % Band Neutrophils % (0-10) % Lymphocytes % (Manual) (20-40) % Atypical Lymphs % % Monocytes % (Manual) (2-10) % Eosinophils % (Manual) (0.7-5.8) % Basophils % (Manual) (0.1-1.2) Platelet Estimate Hypochromasia Anisocytosis Microcytosis RBC Morph Comment PT (9.7-11.7) SECONDS INR APTT (22-31) SECONDS D-Dimer, Quantitative (0.19-0.50) mg/L Puncture Site ABG pH (7.35-7.45) ABG pCO2 (35.0-45.0) mmHg ABG pO2 (80.0-100.0) mmHg ABG HCO3 (22.0-26.0) meq/L ABG O2 Saturation (96.0-97.0) % ABG Base Excess (-2-2.0) Severino Test A-a Gradient mmHg O2 Delivery Device Oxygen Flow Rate FiO2 (21.00-100.00) % Sodium 139 (136-145) mEq/L Potassium 3.0 L (3.5-5.1) mEq/L Chloride 106 (98-107) mEq/L Carbon Dioxide 20 L (21-32) mEq/L Anion Gap 16.0 H (5-15) BUN 17 (7-18) mg/dL Creatinine 1.2 H (0.55-1.02) mg/dL Est Cr Clr Drug Dosing 40.60 mL/min Estimated GFR (MDRD) 44 (>60) mL/min BUN/Creatinine Ratio 14.2 (14-18) Glucose 234 H (83-115) mg/dL Lactic Acid 1.5 (0.4-2.0) mmol/L Calcium 7.4 L (8.5-10.1) mg/dL Magnesium 1.7 L (1.8-2.4) mg/dl Ferritin 40 (8-252) ng/ml Total Bilirubin 0.5 (0.2-1.0) mg/dL AST 17 (15-37) U/L ALT 15 (14-59) U/L Alkaline Phosphatase 60 (46-116) U/L Lactate Dehydrogenase 159 (81-234) U/L CK-MB (CK-2) 0.5 (0-3.6) ng/ml Troponin I 0.019 (0.00-0.056) ng/mL C-Reactive Protein 12.6 H* (<1.0) mg/dL NT-Pro-B Natriuret Pep (0-125) pg/mL Total Protein 5.8 L (6.4-8.2) g/dl Albumin 2.7 L (3.4-5.0) g/dl Globulin 3.1 gm/dL Albumin/Globulin Ratio 0.9 L (1-2) Urine Color (Yellow) Urine Appearance (Clear) Urine pH (5.0-8.0) Ur Specific [place] (1.005-1.030) Urine Protein (Negative) Urine Glucose (UA) (Negative) Urine Ketones (Negative) Urine Occult Blood (Negative) Urine Nitrite (Negative) Urine Bilirubin (Negative) Urine Urobilinogen (0.2-1.0) Ur Leukocyte Esterase (Negative) Urine RBC (0-5) /hpf Urine WBC (0-5) /hpf Ur Epithelial Cells (0-5) /hpf Urine Bacteria (FEW) /hpf Urine Mucus (FEW) /hpf 08/11/20 08/11/20 08/11/20 Range/Units 20:39 21:18 21:18 WBC (3.98-10.04) K/mm3 RBC (3.98-5.22) M/mm3 Hgb (11.2-15.7) gm/dl Hct (34.1-44.9) % MCV (79.4-94.8) fl MCH (25.6-32.2) pg MCHC (32.2-35.5) g/dl RDW Std Deviation (36.4-46.3) fL Plt Count (182-369) K/mm3 MPV (9.4-12.3) fl Neutrophils % (Manual) (40-60) % Band Neutrophils % (0-10) % Lymphocytes % (Manual) (20-40) % Atypical Lymphs % % Monocytes % (Manual) (2-10) % Eosinophils % (Manual) (0.7-5.8) % Basophils % (Manual) (0.1-1.2) Platelet Estimate Hypochromasia Anisocytosis Microcytosis RBC Morph Comment PT 13.4 H (9.7-11.7) SECONDS INR 1.26 APTT 37 H (22-31) SECONDS D-Dimer, Quantitative 0.67 H (0.19-0.50) mg/L Puncture Site ABG pH (7.35-7.45) ABG pCO2 (35.0-45.0) mmHg ABG pO2 (80.0-100.0) mmHg ABG HCO3 (22.0-26.0) meq/L ABG O2 Saturation (96.0-97.0) % ABG Base Excess (-2-2.0) Severino Test A-a Gradient mmHg O2 Delivery Device Oxygen Flow Rate FiO2 (21.00-100.00) % Sodium (136-145) mEq/L Potassium (3.5-5.1) mEq/L Chloride (98-107) mEq/L Carbon Dioxide (21-32) mEq/L Anion Gap (5-15) BUN (7-18) mg/dL Creatinine (0.55-1.02) mg/dL Est Cr Clr Drug Dosing mL/min Estimated GFR (MDRD) (>60) mL/min BUN/Creatinine Ratio (14-18) Glucose (83-115) mg/dL Lactic Acid (0.4-2.0) mmol/L Calcium (8.5-10.1) mg/dL Magnesium (1.8-2.4) mg/dl Ferritin (8-252) ng/ml Total Bilirubin (0.2-1.0) mg/dL AST (15-37) U/L ALT (14-59) U/L Alkaline Phosphatase (46-116) U/L Lactate Dehydrogenase (81-234) U/L CK-MB (CK-2) (0-3.6) ng/ml Troponin I (0.00-0.056) ng/mL C-Reactive Protein (<1.0) mg/dL NT-Pro-B Natriuret Pep 211 H (0-125) pg/mL Total Protein (6.4-8.2) g/dl Albumin (3.4-5.0) g/dl Globulin gm/dL Albumin/Globulin Ratio (1-2) Urine Color (Yellow) Urine Appearance (Clear) Urine pH (5.0-8.0) Ur Specific [place] (1.005-1.030) Urine Protein (Negative) Urine Glucose (UA) (Negative) Urine Ketones (Negative) Urine Occult Blood (Negative) Urine Nitrite (Negative) Urine Bilirubin (Negative) Urine Urobilinogen (0.2-1.0) Ur Leukocyte Esterase (Negative) Urine RBC (0-5) /hpf Urine WBC (0-5) /hpf Ur Epithelial Cells (0-5) /hpf Urine Bacteria (FEW) /hpf Urine Mucus (FEW) /hpf 08/12/20 Range/Units 07:03 WBC (3.98-10.04) K/mm3 RBC (3.98-5.22) M/mm3 Hgb (11.2-15.7) gm/dl Hct (34.1-44.9) % MCV (79.4-94.8) fl MCH (25.6-32.2) pg MCHC (32.2-35.5) g/dl RDW Std Deviation (36.4-46.3) fL Plt Count (182-369) K/mm3 MPV (9.4-12.3) fl Neutrophils % (Manual) (40-60) % Band Neutrophils % (0-10) % Lymphocytes % (Manual) (20-40) % Atypical Lymphs % % Monocytes % (Manual) (2-10) % Eosinophils % (Manual) (0.7-5.8) % Basophils % (Manual) (0.1-1.2) Platelet Estimate Hypochromasia Anisocytosis Microcytosis RBC Morph Comment PT (9.7-11.7) SECONDS INR APTT (22-31) SECONDS D-Dimer, Quantitative (0.19-0.50) mg/L Puncture Site ABG pH (7.35-7.45) ABG pCO2 (35.0-45.0) mmHg ABG pO2 (80.0-100.0) mmHg ABG HCO3 (22.0-26.0) meq/L ABG O2 Saturation (96.0-97.0) % ABG Base Excess (-2-2.0) Severino Test A-a Gradient mmHg O2 Delivery Device Oxygen Flow Rate FiO2 (21.00-100.00) % Sodium 142 (136-145) mEq/L Potassium 3.9 (3.5-5.1) mEq/L Chloride 110 H (98-107) mEq/L Carbon Dioxide 16 L (21-32) mEq/L Anion Gap 19.9 H (5-15) BUN 15 (7-18) mg/dL Creatinine 0.9 (0.55-1.02) mg/dL Est Cr Clr Drug Dosing 54.14 mL/min Estimated GFR (MDRD) > 60 (>60) mL/min BUN/Creatinine Ratio 16.7 (14-18) Glucose 94 (83-115) mg/dL Lactic Acid (0.4-2.0) mmol/L Calcium 7.5 L (8.5-10.1) mg/dL Magnesium (1.8-2.4) mg/dl Ferritin (8-252) ng/ml Total Bilirubin 0.4 (0.2-1.0) mg/dL AST 20 (15-37) U/L ALT 12 L (14-59) U/L Alkaline Phosphatase 56 (46-116) U/L Lactate Dehydrogenase (81-234) U/L CK-MB (CK-2) (0-3.6) ng/ml Troponin I (0.00-0.056) ng/mL C-Reactive Protein (<1.0) mg/dL NT-Pro-B Natriuret Pep (0-125) pg/mL Total Protein 5.5 L (6.4-8.2) g/dl Albumin TNP (3.4-5.0) g/dl Globulin TNP gm/dL Albumin/Globulin Ratio TNP (1-2) Urine Color (Yellow) Urine Appearance (Clear) Urine pH (5.0-8.0) Ur Specific [place] (1.005-1.030) Urine Protein (Negative) Urine Glucose (UA) (Negative) Urine Ketones (Negative) Urine Occult Blood (Negative) Urine Nitrite (Negative) Urine Bilirubin (Negative) Urine Urobilinogen (0.2-1.0) Ur Leukocyte Esterase (Negative) Urine RBC (0-5) /hpf Urine WBC (0-5) /hpf Ur Epithelial Cells (0-5) /hpf Urine Bacteria (FEW) /hpf Urine Mucus (FEW) /hpf Meds: Medications Discontinued Medications Generic Name Dose Route Start Last Admin Trade Name Freq PRN Reason Stop Dose Admin Enoxaparin Sodium 40 mg 08/12/20 06:09 08/12/20 06:31 Lovenox SUBCUT 08/12/20 06:10 40 mg ONETIME ONE Administration Dextrose/Sodium Chloride 1,000 mls @ 150 mls/hr 08/11/20 19:00 Dextrose 5%-Normal Saline IV ASDIRECTED EDNA Dextrose/Sodium Chloride 1,000 mls @ 999 mls/hr 08/11/20 20:00 08/11/20 19:40 Dextrose 5%-Normal Saline IV 999 mls/hr ASDIRECTED EDNA Administration Ceftriaxone Sodium 2 gm/ 100 mls @ 200 mls/hr 08/11/20 21:01 08/11/20 21:13 Sodium Chloride IV 08/11/20 21:30 200 mls/hr ONETIME ONE Administration Dextrose/Sodium Chloride 1,000 mls @ 150 mls/hr 08/11/20 22:30 08/11/20 22:30 Dextrose 5%-Normal Saline IV 150 mls/hr ASDIRECTED EDNA Administration Potassium Chloride/Sodium Chloride 1,000 mls @ 125 mls/hr 08/11/20 23:30 08/11/20 23:37 Normal Saline With 40 Meq Kcl IV 125 mls/hr ASDIRECTED EDNA Administration Magnesium Sulfate/Dextrose 1 100 mls @ 100 mls/hr 08/12/20 07:26 08/12/20 08:04 gm/ Premix IV 08/12/20 08:25 100 mls/hr ONETIME ONE Administration Lactated Ringer's 1,000 mls @ 75 mls/hr 08/12/20 08:30 08/12/20 09:28 Ringers, Lactated IV 75 mls/hr ASDIRECTED EDNA Administration Sodium Chloride 100 mls @ 75 mls/hr 08/12/20 13:45 08/12/20 14:18 Normal Saline IV 75 mls/hr ASDIRECTED EDNA Administration Lactated Ringer's 250 mls @ 999 mls/hr 08/12/20 13:40 08/12/20 13:43 Ringers, Lactated IV 08/12/20 13:55 999 mls/hr .BOLUS ONE Administration Iopamidol 100 ml 08/12/20 13:40 08/12/20 14:17 [id number] (76%) IVPUSH 08/12/20 13:41 100 ml ONETIME ONE Administration Sodium Chloride 10 ml 08/12/20 13:40 08/12/20 14:17 Saline Flush FLUSH 10 ml ONETIME PRN Administration IV FLUSH - Radiology Interpretation Free Text/Narrative:: 75-year-old female from local [facility] presents to the ED with known COVID positivity x1 week. Increased confusion and hypoxemia over the last 24 to 36 hours. At time of assessment O2 sats were 84% on room air. Patient was started on 4 L per nasal cannula. She is restless and agitated and appears confused. No useful history could be gleaned from the patient. Does have a productive sounding cough. IV fluids D5 normal saline started at 150 mils per hour. Chest x-ray and labs ordered including blood cultures x2 and urine by catheterization. - Re-Assessments/Exams Free Text/Narrative Re-Assessment/Exam: 08/11/20 21:01 ABGs revealed a pH of 7.37. PCO2 was 26.7 with a PO2 of 69.0 O2 sats of 91% on 4 L by nasal cannula. Oxygen increased to 5 L per nasal cannula. Urinalysis shows 2+ proteinuria trace of ketones and 1+ occult blood 1+ bilirubin 1+ leukocyte esterase 10-20 RBCs per high-power field and 75-100 white blood cells with many bacteria appreciated on slide. Chest X-ray still has not been done. 08/11/20 21:08 Chest x-ray has been completed. Mild hyperinflated lung wyman bilaterally. Bilateral pneumonia involving portions of the right middle lobe and right lower lobe and the lingula of the left lung field. No pleural effusions or pneumothorax evident. Picture is consistent with COVID-19 illness. 08/11/20 21:59 White blood cell count is 6.50. The differential shows 84% neutrophils and no bands cells. Hemoglobin is low at 9.7 with hematocrit of 32.7. MCV is 81.3. Platelet count low normal at 124,000. Slide shows 2+ hypochromasia 2+ anisocytosis and 1+ microcytosis. PT is 13.4 with an INR of 1.26. PTT is 37 with a d-dimer of 0.67 slightly elevated. Lactic acid was 1.5. Chemistry is pending. 08/11/20 22:19 02 sats have remained 92 to 94% on room air. Blood pressure is now up to 98/49 after a liter of IV fluids. She has received Rocephin 2 g intravenously for urinary tract infection. Pleated a liter of IV fluids. She will be placed on D5 normal saline at 150 mils an hour overnight. Will adjust if blood pressure falls further. She will have to be boarded in the emergency room as an observation patient as there are no beds in our hospital or in the state at this point time. Requires oxygen as she is significantly hypoxic from COVID-19 illness. She has a secondary urinary tract infection with early sepsis. 08/11/20 23:26 Chemistry analyzer has now been fixed. Sodium is 139 with a potassium low at 3.0. Chloride is 106 with a bicarb of 20. Anion gap is slightly elevated at 16.0. BUN was 17 with a creatinine of 1.2. Estimated GFR is 44. Glucose is elevated at 234. Lactic acid 1.5 calcium low at 7.4 magnesium slightly low at 1.7. Liver function is normal. LDH is 159 CK-MB fraction 0.5 troponin I is 0.019. C-reactive protein elevated at 12.6. BNP slightly elevated at 211. Total protein is 5.8 with an albumin fraction low at 2.7. Patient will therefore require potassium replacement. IV will be changed from D5 normal saline to normal saline with 40 mg of KCl per liter to run at 125 mils per hour pressure continues to improve at 103/41. Sats are 95% on room air. 08/12/20 00:48 O2 sats are up to 98%. Heart rate 79 and sinus BP 99/51. 08/12/20 01:57 O2 sats are 97%. Blood pressure is 102/69 heart rate is 81 and sinus. Patient has been for the most part sleeping 08/12/20 02:52 02 sats have remained around 97 to 100% on 5L/min. 02 to be turned down to 3L/min. 08/12/20 05:23 patient remains asleep. Heart rate is 76 and sinus. 02 sats have remained steady at 94% on 3L/min. Mildy tachypneic at 22 breaths per min. Blood pressure 101/42. Labs to be repeated at 0630 hrs. Patient will need admission to the hospital when a bed becomes available. I will proceed with anticoagulation with Lovenox 40 mg subcutaneously , which should be given once daily. 08/12/20 06:12 I did speak with her brother who contacted the ER per phone about his sisters diagnosis and prognosis. Attempts to further wean her from oxygen have failed. On 2 L/min she desaturated to 88%. She therefore requires a minimum of 3 L of oxygen per nasal cannula at this time to keep her at 92 to 94%. 08/12/20 07:15: Care transferred to Dr. Henderson as it is change of shift. If no beds are available here today alternative placement will be required. 08/13/20 03:10: Is my understanding that the patient was transferred to [facility] in [place] mid afternoon yesterday. Time of discharge is not noted in the chart. Departure - Departure Condition: Serious Sepsis Event Note (ED) - Evaluation Sepsis Screening Result: Possible Severe Sepsis Risk
[2020-08-11] MEDS ORDERED: cefTRIAXone 2 GM in Sodium Chloride 0.9% 100 ML IV ONE (21:01)
--- NOTE | 2020-08-11 22:22 | CR ---
Chest: Frontal view of the chest was obtained utilizing portable technique. Comparison: Prior chest x-ray of 02/19/17. Slight parenchymal density within both lung bases. Uncertain if this is chronic as this is improved from prior study or represents reappearance of slight areas of pneumonia. Upper lungs are clear. Heart size and mediastinum are normal. Bony structures are unremarkable. Impression: 1. Slight parenchymal change within both lung bases as noted above. 2. Other portions of the portable chest x-ray are unremarkable. Diagnostic code #3 This report was dictated in MDT
[2020-08-11] MEDS ORDERED: Sodium Chloride 0.9% with KCl 1,000 ML IV SCH (23:30)
[2020-08-12 06:03] VITALS: BP 101/42; PULSE 80
[2020-08-12] MEDS ORDERED: Enoxaparin 40 MG/0.4 ML Syringe SUBCUT ONE (06:09)
[2020-08-12] MEDS ORDERED: Lactated Ringers 1,000 ML IV SCH (08:30)
[2020-08-12] MEDS ORDERED: Lactated Ringers 250 ML IV ONE (13:40)
[2020-08-12] MEDS ORDERED: Iopamidol 755 Mg/ML 100 ML Bottle IVPUSH ONE (13:40)
[2020-08-12] MEDS ORDERED: Sodium Chloride 0.9% 10 ML Syringe FLUSH PRN (13:40)
[2020-08-12] MEDS ORDERED: Sodium Chloride 0.9% 100 ML IV SCH (13:45)
--- NOTE | 2020-08-12 14:30 | CT ---
CT chest Technique: Multiple axial sections were obtained as a pulmonary angiogram protocol. Reconstructed coronal and sagittal images were obtained. Findings: Pulmonary arteries are not optimally opacified. No filling defects within the main or proximal segmental branches to indicate pulmonary emboli. More distal pulmonary emboli could be missed. Scattered lymph nodes are seen within the mediastinum which are more prominent than usually seen. Right hilar adenopathy is also noted. Areas of increased density are noted within both lung bases. Other smaller patchy areas of increased density are seen within both upper lungs. Bone window settings were reviewed which shows no acute osseous finding. Moderate sized hiatal hernia is noted. Impression: 1. Patchy areas of increased density most confluent within both lung bases. Due to the multifocal nature findings most likely due to mild to moderate Covid pneumonia. 2. Pulmonary arteries not optimally opacified. No larger pulmonary emboli within the main or segmental branches. 3. Hiatal hernia. 4. Mild mediastinum and hilar adenopathy most likely reactive from the lung process. Diagnostic code #5 Study was dictated in [facility]
== END 2020-08-12 15:35 ==
LOC: JD.ED 17:38
DX: U07.1 COVID-19 (principal); N30.01 Acute cystitis with hematuria; R41.82 Altered mental status, unspecified; M40.204 Unspecified kyphosis, thoracic region; E78.5 Hyperlipidemia, unspecified; K21.9 Gastro-esophageal reflux disease without esophagitis; F32.9 Major depressive disorder, single episode, unspecified; F20.9 Schizophrenia, unspecified; R94.31 Abnormal electrocardiogram [ECG] [EKG]; R79.1 Abnormal coagulation profile; Z88.8 Allergy status to other drugs, medicaments and biological substances; Z79.82 Long term (current) use of aspirin; Z79.899 Other long term (current) drug therapy
CPT/HCPCS: 36415; 36600; 71045; 80053; 81001; 82553; 82728; 82803; 83605; 83615; 83735; 83880; 84484; 85007; 85027; 85379; 85610; 85730; 86140; 87040; 93005; 96361; 96365; 96367; 96372; 99285; J0696; J3480; J7042; J7050; 93010